=== PATIENT | male | born 1945 | race Caucasian/White ===

== ENCOUNTER 2022-04-16 09:45 | Emergency (ER) | payer MEDICARE, OTHER, SELFPAY ==
[2022-04-16 10:04] VITALS: BP 152/87; PULSE 65; RESP 18; TEMP 36.4; O2SAT 97; BMI 22.0
--- NOTE | 2022-04-16 10:58 | ED.GENADULT ---
HPI - General Adult General Chief complaint: Unspecified Complaint, Adult Stated complaint: Face,eyes, neck swollen for 2 weeks Time Seen by Provider: 04/16/22 10:32 Source: patient Mode of arrival: ambulatory Limitations: no limitations History of Present Illness HPI narrative: 76-year-old male coming in today complaining of a rash on his face and neck that is present for about 2 weeks. The rash is very itchy. The skin has been cracking and the whole area feels like it is sunburned. He uses a Benadryl spray which does not really help him too much. He denies difficulty breathing or swallowing. Rash is located across the cheeks nose chin and the neck. Patient does state that he spends a lot of time outside. He states that 1 year ago the same thing happened with the rash went away on its own in a few days. The rash does not encompasses forehead, he does wear a hat that when he is outside. And the rash does not go below his neckline. He denies any difficulty breathing or swallowing. He does have history of psoriasis but he states that his psoriasis has been fairly well controlled he has had no significant outbreaks and is not on any medications. He states that he has a patch on his hip that is small and does not bother him. He is on amlodipine and simvastatin which he has been off for several years for hypertension and hyperlipidemia and denies any new medications. Related Data Home Medications Medication Instructions Recorded Confirmed amlodipine 04/16/22 simvastatin 04/16/22 Previous Rx's Medication Instructions Recorded prednisone 20 mg tablet 20 mg PO DAILY 5 days #5 tabs 04/16/22 triamcinolone acetonide 0.5 % 1 applic topical DAILY PRN 5 days 04/16/22 topical cream #15 grams Allergies Allergy/AdvReac Type Severity Reaction Status Date / Time No Known Drug Allergies Allergy Verified 04/16/22 10:09 Review of Systems Status of ROS: Reports: 10 or more systems reviewed and unremarkable except as noted in History and below Exam Narrative: Exam Narrative: Well-nourished well-developed patient in no acute distress. Alert and oriented. Answers questions appropriately. Mood and affect are appropriate. Thoughts are goal oriented and rational. No tangential or magical thinking noted. Patient speaks in full sentences without needing to catch his breath. Voice sounds normal. HEENT: Normocephalic atraumatic. Pupils are equally round reactive to light. Extraocular muscles are intact. Conjunctivae are moist without any icterus noted. Moist mucous membranes. Posterior pharynx is normal. Neck is soft without any lymphadenopathy or thyromegaly. No masses are appreciated. Patient's skin across the cheeks nose and chin is bright pink with the rash extending down the front of the neck. The skin is very dry and cracked in a couple of places, several places are scaly. It is not hot to touch. It is not indurated. There is no significant swelling noted. The rash does not extend circumferentially around the neck. Const: Vital Signs, click to edit/add: Vital Signs - 24 hr 04/16/22 10:04 Temperature 97.6 F Pulse Rate [Pulse Oximeter] 65 Respiratory Rate 18 Blood Pressure [Ri ght Upper Arm] 152/87 H Pulse Oximetry 97 Oxygen Delivery Me thod Room Air Course Vital Signs Vital signs: Initial Vital Signs Temperature 97.6 F 04/16/22 10:04 Temperature Source Temporal Artery Scan 04/16/22 10:04 Pulse Rate 65 04/16/22 10:04 Respiratory Rate 18 04/16/22 10:04 Blood Pressure 152/87 H 04/16/22 10:04 Blood Pressure Mean 108 04/16/22 10:04 Blood Pressure Position Supine 04/16/22 10:04 Pulse Oximetry 97 04/16/22 10:04 Oxygen Delivery Method 04/16/22 10:04 Vital Signs Temperature 97.6 F 04/16/22 10:04 Pulse Rate 65 04/16/22 10:04 Respiratory Rate 18 04/16/22 10:04 Blood Pressure 152/87 H 04/16/22 10:04 Pulse Oximetry 97 04/16/22 10:04 Oxygen Delivery Method 04/16/22 10:04 Temperature 97.6 F 04/16/22 10:04 Pulse Rate 65 04/16/22 10:04 Respiratory Rate 18 04/16/22 10:04 Blood Pressure 152/87 H 04/16/22 10:04 Pulse Oximetry 97 04/16/22 10:04 Oxygen Delivery Method 04/16/22 10:04 Medical Decision Making [facility] Narrative Medical decision making narrative: 76-year-old male with a rash on his face and anterior neck. Rash is eczematous in appearance, appears to only be on skin that has been exposed to the cold. I do not appreciate any evidence of infection today. We will treat him with oral prednisone as well as triamcinolone cream. I would like him follow up with primary care provider next week. Return to the ER if symptoms worsen. Patient was agreeable had no other questions. Discharge Plan Discharge Clinical Impression: Rash Patient Disposition: Home, Self-Care Condition: Stable Additional Instructions: Take all medications as prescribed. Follow-up with primary care provider in 1 week. Prescriptions: New prednisone 20 mg tablet 20 mg PO DAILY 5 Days Qty: 5 0RF triamcinolone acetonide 0.5 % cream 1 applic topical DAILY PRN5 Days Qty: 15 0RF No Action amlodipine simvastatin Follow Up/Referrals: Faizan An MD [Primary Care Provider] - Stand Alone Forms: [facility] Info Instructions
== END 2022-04-16 11:41 | disposition home or self-care (01) ==
LOC: ED 11:15
PROVIDERS: Emergency Provider Family Medicine; PCP Family Medicine
DX: R21 Rash and other nonspecific skin eruption (principal)
CPT/HCPCS: 99283; 99284

== ENCOUNTER 2022-12-27 10:05 | Emergency (ER) | payer MEDICARE, OTHER, SELFPAY ==
[2022-12-27] VITALS (19 sets, daily range): BP systolic 146–162; BP diastolic 78–101; PULSE 60–72; RESP 18; TEMP 36.3; O2SAT 95–97; BMI 22.7
--- NOTE | 2022-12-27 | CRLHL7_ITS ---
For Patients: As a result of the Century Cures Act, medical imaging exams and procedure reports are released immediately into your electronic medical record. You may view this report before your referring provider. If you have questions, please contact your health care provider. CT ANGIOGRAM HEAD DATE: 12/27/2022 CLINICAL HISTORY: Patient with headache. TECHNIQUE: Standard helical CT image acquisition through the intracranial circulation following intravenous administration of contrast material with bolus tracking. 2D and 3D MIP images for post-processing were performed and interpreted on an independent workstation and 3D images were permanently archived. COMPARISON: CT same day. FINDINGS: There is no proximal intracranial large vessel occlusion. There is no intracranial aneurysm. The right internal carotid artery is normal. The right middle cerebral artery and its branches are normal. The right anterior cerebral artery and its branches are normal. The left internal carotid artery is normal. The left middle cerebral artery and its branches are normal. The left anterior cerebral artery and its branches are normal. The anterior communicating artery is well visualized and appears normal. The right vertebral artery and PICA are normal. The left vertebral artery and PICA are normal. The left vertebral artery is dominant. The basilar artery is patent and appears normal. The right posterior cerebral artery is normal. The left posterior cerebral artery is normal. The visualized venous structures are patent. IMPRESSION: Patent proximal intracranial vasculature without intracranial aneurysms. Please note that all CT scans at this facility use dose modulation, iterative reconstruction, and/or weight-based dosing when appropriate to reduce radiation dose to as low as reasonably achievable. Dictated by: Deven Shaffer MD @ 12/27/2022 13:00:19 (Electronically Signed)
--- NOTE | 2022-12-27 10:47 | ED_ITS ---
HPI - Neck Pain/Injury General Date Seen: 12/27/22 Chief Complaint: Neck Injury/Pain Stated Complaint: Neck/head pain Time Seen by Provider: 12/27/22 10:09 Source: patient Mode of arrival: ambulatory Limitations: no limitations History of Present Illness HPI Narrative: Patient is a 77-year-old gentleman who presents here for evaluation of neck pain. He has had this now for the past 48 hours, woke up with it in the morning. Did not come on acutely with exertion, or exercise. He does remember pulling some weeds in his garden, and some roots. But does not think this may be due to this. As he chops wood and he has no problems. He really has no issues with numbness tingling or weakness, he has some mild feeling of dizziness in all feeling on balance also with this. He is taking Tylenol 1 g t.i.d., with not a lot of improvement. No previous history of neck issues, denies chiropractic manipulation, is on no anticoagulants. MD complaint: neck pain Onset (ago): day(s) Place: home Radiation: occiput Severity: moderate Quality: stabbing Duration: intermittent Relieving factors: immobilization and medication OTC/prescribed Exacerbating factors: movement of neck and swallowing Context: unknown Associated symptoms: vertigo Treatments prior to arrival: acetaminophen Related Data Home Medications Medication Instructions Recorded Confirmed amlodipine 04/16/22 simvastatin 04/16/22 Previous Rx's Medication Instructions Recorded prednisone 20 mg tablet 20 mg PO DAILY 5 days #5 tabs 04/16/22 triamcinolone acetonide 0.5 % 1 applic topical DAILY PRN 5 days 04/16/22 topical cream #15 grams prednisone 20 mg tablet 20 mg PO BID #10 tabs 12/27/22 Allergies Allergy/AdvReac Type Severity Reaction Status Date / Time No Known Drug Allergies Allergy Verified 12/27/22 12:41 Review of Systems Status of ROS: Reports: 10 or more systems reviewed and unremarkable except as noted in History and below PFSH PFSH Social History Smoking Status: Unknown if ever smoked Non-prescribed substance use: denies use service: Yes Exam Narrative: Exam Narrative: Patient is seen in room 4 he is speaking to me normally nontoxic would really does not have a lot a lateral her cervical motion at all of his neck. His pupils are unequal with the right 1 being 3 mm left lung being 5, he does however tell me that he has had previous eye surgery on the left 1, for cataract, and then repeat surgery for I displaced lens. On looking his license, the left 1 does look a little larger than the right. He does have 2 beats of nystagmus bilaterally horizontal, TMs are normal bilaterally, but upstrokes are equal his mouth opening is normal, there is no evidence of any abnormality of his teeth of the floor of his mouth or his fair next. Range of motion of his neck is from 6-13 cm, and no lateral flexion in no rotation really is noted. No palpable tenderness noted over his neck on palpation or percussion. No masses no cervical lymphadenopathy in his carotid upstrokes are equal bilaterally. Chest is clear heart sounds are normal no clicks murmurs or gallops, he feels to be in regular heart rhythm, bowl turner strengths are normal is upper extremities both finger abduction, 1st finger thumb opposition, biceps triceps power and shoulder abduction are normal, muscle bulk equal bilaterally with normal pulses he is abl e to walk normally in the room he does not appear off balance to me. Const: Vital Signs, click to edit/add: Vital Signs - 24 hr 12/27/22 10:19 12/27/22 11:39 12/27/22 11:45 Temperature 97.4 F L Pulse Rate 63 63 Pulse Rate [Right Pulse Oximeter] 70 Respiratory Rate 18 Blood Pressure Blood Pressure [Ri ght Upper Arm] 146/78 H Pulse Oximetry 96 97 97 Oxygen Delivery Me thod Room Air 12/27/22 12:00 12/27/22 12:01 12/27/22 12:02 Temperature Pulse Rate 63 60 61 Pulse Rate [Right Pulse Oximeter] Respiratory Rate Blood Pressure 149/84 H Blood Pressure [Ri ght Upper Arm] Pulse Oximetry 96 96 96 Oxygen Delivery Me thod 12/27/22 12:15 12/27/22 12:40 12/27/22 12:45 Temperature Pulse Rate 66 68 63 Pulse Rate [Right Pulse Oximeter] Respiratory Rate Blood Pressure Blood Pressure [Ri ght Upper Arm] Pulse Oximetry 97 96 97 Oxygen Delivery Nj thod 12/27/22 13:00 12/27/22 13:01 12/27/22 13:21 Temperature Pulse Rate 68 66 67 Pulse Rate [Right Pulse Oximeter] Respiratory Rate Blood Pressure 162/85 H Blood Pressure [Ri ght Upper Arm] Pulse Oximetry 97 96 95 Oxygen Delivery Me thod Documenting provider has reviewed patient's vital signs: yes Course Course Hospital Course: Reviewed with patient is radiology tests both the CT and CTAs, look okay. There is 60% disease of his internal carotid, which should make him a candidate for aspirin 81 mg day. But [facility]. There is severe disease of his cervical spine, osteoarthritis and degenerative disc disease is likely is the cause of his inability to move his neck. He has been on prednisone before, and done well with this we will place him on prednisone 20 mg twice daily. I will give him a dose of Solu-Medrol here to get him going. [facility] will [facility]. He can take acetaminophen 1 g also. Vital Signs Vital signs: Initial Vital Signs Temperature 97.4 F L 12/27/22 10:19 Temperature Source Temporal Artery Scan 12/27/22 10:19 Pulse Rate 70 12/27/22 10:19 Respiratory Rate 18 12/27/22 10:19 Blood Pressure 146/78 H 12/27/22 10:19 Blood Pressure Mean 100 12/27/22 10:19 Blood Pressure Position Sitting 12/27/22 10:19 Pulse Oximetry 96 12/27/22 10:19 Oxygen Delivery Method Room Air 12/27/22 10:19 Vital Signs Temperature 97.4 F L 12/27/22 10:19 Pulse Rate 70 12/27/22 10:19 Respiratory Rate 18 12/27/22 10:19 Blood Pressure 146/78 H 12/27/22 10:19 Pulse Oximetry 96 12/27/22 10:19 Oxygen Delivery Method Room Air 12/27/22 10:19 Temperature 97.4 F L 12/27/22 10:19 Pulse Rate 67 12/27/22 13:21 Respiratory Rate 18 12/27/22 10:19 Blood Pressure 162/85 H 12/27/22 13:01 Pulse Oximetry 95 12/27/22 13:21 Oxygen Delivery Method Room Air 12/27/22 10:19 MDM - Neck Pain/Injury MDM Narrative Medical decision making narrative: We will go ahead and get some labs, will need some imaging, I am thinking likely CTA of head and neck, along with CT of the head. Differential Diagnosis Differential diagnosis: Likely disc disorder of cervical region, closed subluxation of cervical spine, fracture of cervical spine without lesion of spinal cord, cervical radiculopathy, vertebral artery dissection, torticollis, cervical spondylosis and strain of neck muscle Medical Records Attestation: I reviewed the patient's medical records. Lab Data Attestation: I reviewed the patient's lab results. Labs: Lab Results 12/27/22 Range/Units 11:21 WBC 8.18 (4.50-11.00) K/uL RBC 5.10 (4.30-5.90) m/uL Hgb 16.0 (13.5-17.5) gm/dL Hct 47.0 (37.0-53.0) % MCV 92 (80-100) fL MCH 31 (26-34) pg MCHC 34 (32-36) gm/dL RDW Coeff of Monica 12.9 (11.5-15.5) % Plt Count 402 (140-440) K/uL Neut % (Auto) 63.3 (42.0-72.0) % Lymph % (Auto) 22.7 (20-44) % [place] % (Auto) 11.2 H (0.0-11.0) % Eos % (Auto) 2.3 (0.0-7.0) % Baso % (Auto) 0.4 (0.0-3.0) % Neut # (Auto) 5.17 (1.7-7.0) K/uL Lymph # (Auto) 1.86 (0.90-2.90) K/uL [place] # (Auto) 0.90 (0.00-0.90) K/UL Eos # (Auto) 0.19 (0.00-0.50) K/uL Baso # (Auto) 0.03 (0.00-0.30) K/uL Abs Immat Gran (auto) 0.01 (0.00-0.30) K/uL Imm/Tot Granulo (auto) 0.1 % INR 0.96 (0.91-1.10) APTT 28 (23-33) Seconds Sodium 140 (135-149) mmol/L Potassium 3.6 (3.6-5.1) mmol/L Chloride 104 (96-114) mmol/L Carbon Dioxide 26 (20-32) mmol/L BUN 10 (7-30) mg/dL Creatinine 0.6 (0.5-1.5) mg/dL Estimated Creat Clear 57.55 Estimated GFR 99 ml/min Glucose 95 (60-115) mg/dL Calcium 9.6 (8.4-10.6) mg/dL C-Reactive Protein 1.6 H (0.5-1.0) mg/dL Imaging Data CT scan - head: Attestation: I have reviewed the pertinent imaging results. My impression: Severe disease of cervical spine. No acute finding Radiologist's impression: Patient: SHANKAR GAMINO Facility:?[facility] Patient ID:?[id number] Site Patient ID:?[id number]. Site :?1945 Study:?CT Head Angio w/ 95cc [id number] 12:45:08 PM Ordering Physician:Constance Brunner Final Report: CT ANGIOGRAM HEAD DATE: 12/27/2022 CLINICAL HISTORY: Patient with headache. TECHNIQUE: Standard helical CT image acquisition through the intracranial circulation following intravenous administration of contrast material with bolus tracking. 2D and 3D MIP images for post-processing were performed and interpreted on an independent workstation and 3D images were permanently archived. COMPARISON: CT same day. FINDINGS: There is no proximal intracranial large vessel occlusion. There is no intracranial aneurysm. The right internal carotid artery is normal. The right middle cerebral artery and its branches are normal. The right anterior cerebral artery and its branches are normal. The left internal carotid artery is normal. The left middle cerebral artery and its branches are normal. The left anterior cerebral artery and its branches are normal. The anterior communicating artery is well visualized and appears normal. The right vertebral artery and PICA are normal. The left vertebral artery and PICA are normal. The left vertebral artery is dominant. The basilar artery is patent and appears normal. The right posterior cerebral artery is normal. The left posterior cerebral artery is normal. The visualized venous structures are patent. IMPRESSION: Patent proximal intracranial vasculature without intracranial aneurysms. Please note that all CT scans at this facility use dose modulation, iterative reconstruction, and/or weight-based dosing when appropriate to reduce radiation dose to as low as reasonably achievable. Dictated by: Deven Shaffer MD @ 12/27/2022 13:00:19 (Electronic Signature) atient: SHANKAR GAMINO Facility:?[facility] Patient ID:?[id number] Site Patient ID:?[id number]. Site :?1945 Study:?CT Neck Angio Angio w/ 95cc [id number] 12:45:06 PM Ordering Physician:Constance Brunner Final Report: CT ANGIOGRAM NECK DATE: 12/27/2022 CLINICAL HISTORY: Patient with neck pain. TECHNIQUE: Standard helical CT image acquisition of the neck up to the skull base after bolus intravenous contrast enhancement. 2D and 3D MIP images for post-processing were performed and interpreted on an independent workstation and 3D images were permanently archived. COMPARISON: CT same day. FINDINGS: The origins of the great vessels from the aortic arch are patent. The origin of the right vertebral artery is patent. The origin of the left vertebral artery demonstrates mild narrowing. The common carotid arteries are patent. There is no stenosis at the origin of the right internal carotid artery by NASCET criteria. There is a moderate (60%) stenosis at the origin of the left internal carotid artery by NASCET criteria caused by non-calcified plaque with a 1.5mm residual lumen. The rest of the cervical segments of the internal carotid arteries are patent up to the skull base. The left vertebral artery is dominant. The cervical segments of the vertebral arteries are patent up to the skull base. The visualized lung apices are unremarkable. The thyroid gland is unremarkable. The soft tissues of the neck are unremarkable. There are degenerative changes in the cervical spine. IMPRESSION: 1. 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 2. Mild left vertebral artery origin stenosis. Please note that all CT scans at this facility use dose modulation, iterative reconstruction, and/or weight-based dosing when appropriate to reduce radiation dose to as low as reasonably achievable. Dictated by: Deven Shaffer MD @ 12/27/2022 12:56:49 (Electronic Signature) Patient: SHANKAR SCHWABTER Facility:?[facility] Patient ID:?[id number] Site Patient ID:?[id number]. Site :?1945 Study:?CT Spine Cervical w/o-12/27/2022 12:40:28 PM Ordering Physician:?Maren Brunner Final Report: Indication: Headache. Neck pain. Technique: CT of the cervical spine performed without IV contrast. Comparison: None available. Findings: The cervical vertebral body heights appear maintained without evidence of fracture. Moderate to severe multilevel disc height loss. Reversal of the lower cervical lordosis. Mild to moderate dextroconvex curvature. Moderate multilevel spondylosis, with varying degrees spinal canal and neural foraminal narrowing, most pronounced at the C5-6 and C6-7 levels. No prevertebral soft tissue swelling. The visualized lung apices appear clear. Impression: 1. No acute fracture or traumatic subluxation. 2. Moderate multilevel spondylosis. Please note that all CT scans at this facility use dose modulation, iterative reconstruction, and/or weight-based dosing when appropriate to reduce radiation dose to as low as reasonably achievable. Dictated by Dane Quijano MD @ 12/27/2022 1:54:56 PM (Electronic Signature) Patient: SHANKAR GAMINO Facility:?[facility] Patient ID:?[id number] Site Patient ID:?[id number]. Site :?1945 Study:?CT Head W/O-12/27/2022 12:40:05 PM Ordering Physician:Constance Brunner Final Report: CT HEAD DATE: 12/27/2022 CLINICAL HISTORY: Patient with headache. TECHNIQUE: Standard CT scanning of the head was performed. COMPARISON: None. FINDINGS: There is no intracranial hemorrhage. There is no territorial infarction. There are mild microangiopathic changes. There is diffuse parenchymal volume loss. There is no mass effect or midline shift. The calvarium is unremarkable. The orbits are unremarkable. The paranasal sinuses are unremarkable. The mastoid air cells are unremarkable. The soft tissues demonstrate non-specific right parietal subgaleal soft tissue thickening. IMPRESSION: 1. No intracranial hemorrhage or territorial infarction. 2. Mild microangiopathic changes and diffuse parenchymal volume loss. Please note that all CT scans at this facility use dose modulation, iterative reconstruction, and/or weight-based dosing when appropriate to reduce radiation dose to as low as reasonably achievable. Dictated by: Deven Shaffer MD @ 12/27/2022 12:52:05 (Electronic Signature) ECG Data Attestation: I personally reviewed and interpreted this ECG as follows: ECG interpretation date: 12/27/22 ECG interpretation time: 12:28 Interpretation: EKG shows normal sinus rhythm, normal EKG with no acute ST wave changes. Discharge Plan Discharge Clinical Impression: Disc disorder of cervical region, Cervical spondylosis, Carotid artery disease Patient Disposition: Home, Self-Care Condition: Stable Instructions: Osteoarthritis (DC), Neck Pain (ED), Chronic Neck Pain (DC) Additional Instructions: Home [facility]. Use of the prednisone as directed, use Tylenol 1 g by mouth 3 times a day. Ice is also helpful, no chiropractic manipulation. Most of the time for 60% disease stenosis carotid we like you to take aspirin 81 mg a day, I would like you [facility]. Return as needed. Activity Level: Light activity Prescriptions: New prednisone 20 mg tablet 20 mg PO BID Qty: 10 0RF No Action amlodipine simvastatin prednisone 20 mg tablet 20 mg PO DAILY 5 Days Qty: 5 0RF triamcinolone acetonide 0.5 % cream 1 applic topical DAILY PRN5 Days Qty: 15 0RF Follow Up/Referrals: Faizan An MD [Primary Care Provider] - Stand Alone Forms: [facility] Info Instructions
[2022-12-27] MEDS: 0.9 % SODIUM CHLORIDE 1000 ml 1,000 ML IV (11:10)
[2022-12-27 11:34] LABS: Basophils Absolute Auto 0.03 K/uL (0.00-0.30); Basophils Percent Auto 0.4 % (0.0-3.0); Eosinophils Absolute Auto 0.19 K/uL (0.00-0.50); Eosinophils Percent Auto 2.3 % (0.0-7.0); Immature Granulocytes Abs Auto 0.01 K/uL (0.00-0.30); Immature Granulocytes Pct Auto 0.1 %; Lymphocytes Absolute Auto 1.86 K/uL (0.90-2.90); Lymphocytes Percent Auto 22.7 % (20-44); Mean Corpuscular HGB Conc 34 gm/dL (32-36); Mean Corpuscular Hemoglobin 31 pg (26-34); Mean Corpuscular Volume 92 fL (80-100); Monocytes Percent Auto 11.2 % (0.0-11.0); Neutrophils Absolute Auto 5.17 K/uL (1.7-7.0); Neutrophils Percent Auto 63.3 % (42.0-72.0); Platelet Count* 402 K/uL (140-440); RDW Coefficient of Variation % 12.9 % (11.5-15.5); White Blood Count* 8.18 K/uL (4.50-11.00)
[2022-12-27 11:38] LABS: Slide Review Reflex No
[2022-12-27 11:52] LABS: Chloride* 104 mmol/L (96-114); Potassium* 3.6 mmol/L (3.6-5.1); Sodium* 140 mmol/L (135-149)
[2022-12-27 11:55] LABS: Blood Urea Nitrogen* 10 mg/dL (7-30); Carbon Dioxide* 26 mmol/L (20-32); Creatinine* 0.6 mg/dL (0.5-1.5); Est. Creatinine Clearance* 57.55; Estimated Glomerular Filt Rate 99 ml/min; INR 0.96 (0.91-1.10); Partial Thromboplastin Time* 28 Seconds (23-33); Prothrombin Time 13.3 Seconds
[2022-12-27 11:56] LABS: Calcium* 9.6 mg/dL (8.4-10.6); Glucose* 95 mg/dL (60-115)
[2022-12-27 11:58] LABS: C Reactive Protein* 1.6 mg/dL (0.5-1.0)
--- NOTE | 2022-12-27 12:07 | CRLHL7_ITS ---
For Patients: As a result of the Century Cures Act, medical imaging exams and procedure reports are released immediately into your electronic medical record. You may view this report before your referring provider. If you have questions, please contact your health care provider. CT HEAD DATE: 12/27/2022 CLINICAL HISTORY: Patient with headache. TECHNIQUE: Standard CT scanning of the head was performed. COMPARISON: None. FINDINGS: There is no intracranial hemorrhage. There is no territorial infarction. There are mild microangiopathic changes. There is diffuse parenchymal volume loss. There is no mass effect or midline shift. The calvarium is unremarkable. The orbits are unremarkable. The paranasal sinuses are unremarkable. The mastoid air cells are unremarkable. The soft tissues demonstrate non-specific right parietal subgaleal soft tissue thickening. IMPRESSION: 1. No intracranial hemorrhage or territorial infarction. 2. Mild microangiopathic changes and diffuse parenchymal volume loss. Please note that all CT scans at this facility use dose modulation, iterative reconstruction, and/or weight-based dosing when appropriate to reduce radiation dose to as low as reasonably achievable. Dictated by: Deven Shaffer MD @ 12/27/2022 12:52:05 (Electronically Signed)
--- NOTE | 2022-12-27 12:07 | CRLHL7_ITS ---
For Patients: As a result of the Century Cures Act, medical imaging exams and procedure reports are released immediately into your electronic medical record. You may view this report before your referring provider. If you have questions, please contact your health care provider. CT ANGIOGRAM NECK DATE: 12/27/2022 CLINICAL HISTORY: Patient with neck pain. TECHNIQUE: Standard helical CT image acquisition of the neck up to the skull base after bolus intravenous contrast enhancement. 2D and 3D MIP images for post-processing were performed and interpreted on an independent workstation and 3D images were permanently archived. COMPARISON: CT same day. FINDINGS: The origins of the great vessels from the aortic arch are patent. The origin of the right vertebral artery is patent. The origin of the left vertebral artery demonstrates mild narrowing. The common carotid arteries are patent. There is no stenosis at the origin of the right internal carotid artery by NASCET criteria. There is a moderate (60%) stenosis at the origin of the left internal carotid artery by NASCET criteria caused by non-calcified plaque with a 1.5mm residual lumen. The rest of the cervical segments of the internal carotid arteries are patent up to the skull base. The left vertebral artery is dominant. The cervical segments of the vertebral arteries are patent up to the skull base. The visualized lung apices are unremarkable. The thyroid gland is unremarkable. The soft tissues of the neck are unremarkable. There are degenerative changes in the cervical spine. IMPRESSION: 1. 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 2. Mild left vertebral artery origin stenosis. Please note that all CT scans at this facility use dose modulation, iterative reconstruction, and/or weight-based dosing when appropriate to reduce radiation dose to as low as reasonably achievable. Dictated by: Deven Shaffer MD @ 12/27/2022 12:56:49 (Electronically Signed)
--- NOTE | 2022-12-27 12:09 | CRLHL7_ITS ---
For Patients: As a result of the Century Cures Act, medical imaging exams and procedure reports are released immediately into your electronic medical record. You may view this report before your referring provider. If you have questions, please contact your health care provider. Indication: Headache. Neck pain. Technique: CT of the cervical spine performed without IV contrast. Comparison: None available. Findings: The cervical vertebral body heights appear maintained without evidence of fracture. Moderate to severe multilevel disc height loss. Reversal of the lower cervical lordosis. Mild to moderate dextroconvex curvature. Moderate multilevel spondylosis, with varying degrees spinal canal and neural foraminal narrowing, most pronounced at the C5-6 and C6-7 levels. No prevertebral soft tissue swelling. The visualized lung apices appear clear. Impression: 1. No acute fracture or traumatic subluxation. 2. Moderate multilevel spondylosis. Please note that all CT scans at this facility use dose modulation, iterative reconstruction, and/or weight-based dosing when appropriate to reduce radiation dose to as low as reasonably achievable. Dictated by Dane Quijano MD @ 12/27/2022 1:54:56 PM (Electronically Signed)
[2022-12-27] MEDS: METHYLPREDNISOLONE SOD SUCC 62.5 MG/ML (125) 125 MG IVP (14:27)
== END 2022-12-27 14:46 | disposition home or self-care (01) ==
PROVIDERS: Emergency Provider Family Medicine; PCP Family Medicine
DX: M50.10 Cervical disc disorder with radiculopathy, unspecified cervical region (principal); M47.812 Spondylosis without myelopathy or radiculopathy, cervical region; I25.10 Atherosclerotic heart disease of native coronary artery without angina pectoris
CPT/HCPCS: 36415; 70450; 70496; 70498; 72125; 80048; 85025; 85610; 85730; 86140; 93005; 96374; 99284; 99285; J2930; J7030; Q9967

== ENCOUNTER 2024-05-22 08:36 | Emergency (ER) | payer MEDICARE, OTHER, SELFPAY ==
--- OUTSIDE RECORDS SUMMARY | 2024-05-22 08:38 | XMS_ITS | Encounter Summary ---
Author Name [facility] [facility] [place] Address [address] [place] [address] Care Team Providers Care Pharmacy Assistant Name Role Phone ODELL HYMAN Primary Care Provider Unavailabl e Insurance Providers: All historical and current Section Date Range: From patient's date of to the date document was created. This section includes the names of all active insurance providers for the patient. Insurance Provider Type of Coverage Plan Name Start of Policy Coverage End of Policy Coverage Group Number Member ID Insurance Provider's Telephone Number Policy Cifuentes's Name Patient's Relationship to Policy Cifuentes MEDICARE (WNR) MEDICARE (M) PART A Apr 14, 2010 PART A [id number] [phone] Sissy GAMINO PATIENT MEDICARE (WNR) MEDICARE (M) PART B Apr 14, 2010 PART B [id number] [phone] Sissy GAMINO PATIENT Selected Encounter This section includes the information on record at [place] for the Encounter. Date/Time Encounter Type Encounter Description Reason Provider Source Nov 09, 2023 08:20 AM OFFICE O/P EST MOD 30 MIN OPHTHALMOLOGY ICD-10-CM H40.003 Preglaucoma, unspecified, bilateral JOSELO ORTIZ [facility] Encounter Template Text not used by [place] Assessments - Encounter Diagnoses This section includes the primary and secondary diagnoses documented for the Encounter. Date/Time Primary/Secondary Diagnosis Diagnosis Name Provider Source Nov 09, 2023 09:32 AM PRIMARY Preglaucoma, unspecified, bilateral JOSELO ORTIZ [facility] Nov 09, 2023 09:32 AM SECONDARY Myopia, bilateral JOSELO ORTIZ [facility] Nov 09, 2023 09:32 AM SECONDARY Other retinal detachments JOSELO ORTIZ [facility] Nov 09, 2023 09:32 AM SECONDARY Unspecified astigmatism, bilateral JOSELO ORTIZ [facility] Plan of Treatment: Future Appointments (+ 6 months) and Future Tests (+/- 45 days) The Plan of Treatment section includes [facility] care [facility] for the patient [facility] [place] [facility] This section includes future appointments and future orders which are active, pending or scheduled. Future Appointments This section includes appointments that were scheduled to occur 6 months from the date of the Encounter, up to a maximum of 20 appointments. The data comes from all [place] treatment facilities. Appointment Date/Time Appointment Type Appointme nt Facility Name Dec 19, 2023 08:00 AM [place] [facility] Dec 19, 2023 09:00 [facility] Feb 07, 2024 11:00 AM [facility] - [place]ONE [place] [facility] Mar 26, 2024 08:00 AM AM[place]ORY - [place]ONE [place] [facility] Mar 26, 2024 09:15 AM AM[place]ORY - [place]ONE [place] [facility] Mar 26, 2024 10:00 AM [facility] Apr 22, 2024 10:45 AM [facility] [place] [facility] [facility] Apr 22, 2024 11:00 AM AM[place]UL[place]ORY - [place]ONE [place] [facility] May 05, 2024 07:00 AM AM[place]ORY - [place]ONE [place] [facility] Social History: Smoking Status (Most current) and Tobacco Use (All prior to encounter date) This section includes the most current, and the historical, smoking and tobacco- related health factors from the [place] facility where the Encounter took place. Current Smoking Status This section includes the most current smoking, or tobacco-related health factor, from the [place] facility where the Encounter took place. Date/Time Current Smoking Status Comment Shaheed jauregui Nov 08, 2022 08:00 AM [place]-TOBACCO NEVER USED [facility] Tobacco Use History This section includes a history of the smoking, or tobacco-related health factors, that were collected on or before the date of the Encounter. The data comes from the [place] facility where the Encounter took place. Date/Time Smoking Status/Tobacco Use Comment F saul Oct 19, 2021 10:00 AM VA-TOBACCO NEVER USED [facility] October 01, 2018 11:22 AM VA-TOBACCO NEVER USED [facility] Jul 31, 2017 12:37 PM LIFETIME NON-TOBACCO USER [facility] Aug 10, 2016 07:51 AM LIFETIME NON-TOBACCO USER [facility] Jul 21, 2015 07:47 AM LIFETIME NON-TOBACCO USER [facility] October 07, 2014 11:04 AM LIFETIME NON-TOBACCO USER [facility] October 04, 2013 09:48 AM LIFETIME NON-TOBACCO USER [facility] Advance Directives: All historical and current Section Date Range: From patient's date of to the date document was created. This section includes ALL of a patient's completed or amended [place] Advance and Rescinded Directives. The entries below indicate that a directive exists for the patient, but an actual copy is not included with this document. The data comes from all [place] facilities. Date Advance Directives Provider Source Mar 24, 2010 CLINICAL WARNING [facility] Dec 07, 2004 ADV[address] DIRECT[address]ISA [address] Encounter Notes: All associated encounter notes This section contains the clinical notes associated to the Encounter. Date/Time Encounter Note(s) Provider Source Nov 09, 2023 09:11 AM OPHTHALMOLOGY ATTE SMITHA NOTE: LOCAL TITLE: OPHTHALMOLOGY CLINIC NOTE STANDARD TITLE: OPHTHALMOLOGY ATTENDING NOTE DATE OF NOTE: NOV 09, 2023@09:11 ENTRY DATE: NOV 09, 2023@09:11:18 AUTHOR: DALI ORTIZ EXP COSIGNER: URGENCY: STATUS: COMPLETED HPI: --Here for 7 mon f/u for VTD/MR today. *LTG f/u History of Present Illness: Patient states no vision changes. c/o OD feling more irritated--he's rubbing it more often. Denies any new floaters/flashes OU. No pain/discomfort OU. Drops Using: Timolol QAM OU pt states that he used to get 3 bottles per refill, but now he's only getting 1 bottle at a time--pt wondering did the rx order change? Eye History: Low tension glaucoma, ou Pseudophakia, OU Hx RD surgery, OU S/P dislocated IOL OS repair Full Exam Allergies: Patient has answered NKA No new Allergies. Past Medical History: Hypertension High cholesterol Social History: Alcohol use - yes Tobacco use - no Last refraction: 03/22/23 Vision: OD:CC(with glasses) OD: 20/40-2/+3 Pinhole: NI Vision: OS:CC(with glasses) 0S: 20/100+1 Pinhole: 2070-1 Current glasses: -1.00 +1.25 X168 -1.50 +0.50 X150 +2.50 add Refraction TODAY: Manifest: YES Automated: NO OD: -1.00 +1.25 x160 20/30-3 fluctuating OS: -1.50 +0.75 x135 20/80 c time Add: +2.75 Near vision: OU 20/20-2 c time Comment: *pt wants rx for sv distance glasses only today--prefers NOT` to get BF Confrontational Rodriguez: Full to finger counting: Right: Yes Left: Yes Pupils: Right: Round Left: Round Size: Right: 3 Left: 4.5 React to light: Right: Yes Left: no--fixed Afferent pupil defect: Right:No Grade: Left: No Grade: Intra-ocular pressure (IOP): OD: 13 OS: 14 Applanation Dilation: mydriacyl 1% and neosynephrine OU @ 8:32 I have reviewed and agree with the technicians examination General Eye Exam (bilateral unless noted otherwise): The patient is alert and oriented x 3 External: Adnexa/Orbit- wnl OU Eyelids/Lashes- dermatochalasis SLE: Conjunctiva- clear Sclera- white and quiet Cornea- clear AC- Deep and clear Iris- wnl and round Lens- PC IOL OD; AC IOL OS Vitreous- clear 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 flat, saucerized ; OS 0.4 Vessels- normal caliber, no heme Macula- flat few drusen Periphery-encircling band and cryo/laser OU Impression/Plan: 1. Glaucoma suspect ou - Peak TA 21/2 - pachy: od 552/563 - oct rnfl 08/04 with significant ppa artifact, not repeating in the future. - HVF in past reliable ou with enlarged blind spot ou and stable Sup nasal defect ? glaucoma vs CR scarring - I doubt glaucoma but timolol has reduced pressure and well tolerated - Cont. Rg OU q AM FU 1 y 2 Pseudophakia, OU AC IOL OS in good position - Doing well, monitor 3. Hx RD surgery, OU - Doing well, monitor 4 S/P dislocated IOL OS repair - stable, monitor 5. Myopic astig (previous high myope) New rx today for distance only. FU 1 y with HVF VTD /es/ DALI ORTIZ MD OPHTHALMOLOGY STAFF SURGEON Signed: 11/09/2023 09:33 DALI ORTIZ [facility] Nov 09, 2023 08:34 AM OPHTHALMOLOGY TECH NICIAN NOTE: LOCAL TITLE: APPLICATION SYSTEMS ENGINEER NOTE STANDARD TITLE: APPLICATION SYSTEMS ENGINEER NOTE DATE OF NOTE: NOV 09, 2023@08:34 ENTRY DATE: NOV 09, 2023@08:34:31 AUTHOR: ESTRELLA GARIBAY COSIGNER: URGENCY: STATUS: COMPLETED Suicide Screen: C-SSRS Screening Anderson-Suicide Severity Rating Scale (C-SSRS Screener) 1. Over the past month, have you wished you were or wished you could go to sleep and not wake up? No 2. Over the past month, have you had any actual thoughts of killing yourself? No 3. Over the past month, have you been thinking about how you might do this? Response not required due to responses to other questions. 4. Over the past month, have you had these thoughts and had some intention of acting on them? Response not required due to responses to other questions. 5. Over the past month, have you started to work out or worked out the details of how to kill yourself? Response not required due to responses to other questions. 6. If yes, at any time in the past month did you intend to carry out this plan? Response not required due to responses to other questions. 7. In your lifetime, have you ever done anything, started to do anything, or prepared to do anything to end your life (for example, collected pills, obtained a gun, gave away valuables, went to the roof but didn't jump)? No 8. If YES, was this within the past 3 months? Response not required due to responses to other questions. /javad/ ESTRELLA GARIBAY [facility] Signed: 11/09/2023 08:35 ESTRELLA GARIBAY [facility] Nov 09, 2023 08:08 AM OPHTHALMOLOGY TECH ANGELITOIAN NOTE: LOCAL TITLE: APPLICATION SYSTEMS ENGINEER NOTE STANDARD TITLE: APPLICATION SYSTEMS ENGINEER NOTE DATE OF NOTE: NOV 09, 2023@08:08 ENTRY DATE: NOV 09, 2023@08:08:48 AUTHOR: ESTRELLA GARIBAY EXP COSIGNER: URGENCY: STATUS: COMPLETED Eye Start Exam Patient: SHANKAR GAMINO Sex: MALE SSN: [id number] Birthdate: [birth year] Chief complaint: Here for 7 mon f/u for VTD/MR today. *LTG f/u History of Present Illness: Patient states no vision changes. c/o OD feling more irritated--he's rubbing it more often. Denies any new floaters/flashes OU. No pain/discomfort OU. Drops Using: Timolol QAM OU pt states that he used to get 3 bottles per refill, but now he's only getting 1 bottle at a time--pt wondering did the rx order change? Eye History: Low tension glaucoma, ou Pseudophakia, OU Hx RD surgery, OU S/P dislocated IOL OS repair Full Exam Allergies: Patient has answered NKA No new Allergies. Past Medical History: Hypertension High cholesterol Social History: Alcohol use - yes Tobacco use - no Last refraction: 03/22/23 Vision: OD:CC(with glasses) OD: 20/40-2/+3 Pinhole: NI Vision: OS:CC(with glasses) 0S: 20/100+1 Pinhole: -1 Current glasses: -1.00 +1.25 X168 -1.50 +0.50 X150 +2.50 add Refraction TODAY: Manifest: YES Automated: NO OD: -1.00 +1.25 x160 20/30-3 fluctuating OS: -1.50 +0.75 x135 20/80 c time Add: +2.75 Near vision: OU 20/20-2 c time Comment: *pt wants rx for sv distance glasses only today--prefers NOT` to get BF Confrontational Rodriguez: Full to finger counting: Right: Yes Left: Yes Pupils: Right: Round Left: Round Size: Right: 3 Left: 4.5 React to light: Right: Yes Left: no--fixed Afferent pupil defect: Right:No Grade: Left: No Grade: Intra-ocular pressure (IOP): OD: 13 OS: 14 Applanation Dilation: mydriacyl 1% and neosynephrine OU @ 8:32 . /javad/ ESTRELLA GARIBAY [facility] Signed: 11/09/2023 08:32 ESTRELLA GARIBAY [facility]
--- OUTSIDE RECORDS SUMMARY | 2024-05-22 08:38 | XMS_ITS | Encounter Summary ---
Author Name [facility] [place] Organization [facility] [place] [facility] [place] Address [address] [place] [address] Care Team Providers Care Board Handler Name Role Phone YENNI ODELL Primary Care Provider Unavailabl e Insurance Providers: [...] PART A Apr 14, 2010 PART A [id number] [phone] Sissy GAMINO PATIENT MEDICARE (WNR) MEDICARE (M) PART B Apr 14, 2010 PART B [id number] [phone] Sissy GAMINO PATIENT Selected Encounter This section includes the information on record at [place] for the Encounter. Date/Time Encounter Type Encounter Description Reason Provider Source Dec 19, 2023 09:00 AM OFFICE O/P EST LOW 20 MIN PRIMARY CARE/MEDICINE ICD-10-CM I10 Essential (primary) hypertension ODELL HYMAN [place] Encounter Template Text not used by [place] Assessments - Encounter Diagnoses This section includes the primary and secondary diagnoses documented for the Encounter. Date/Time Primary/Secondary Diagnosis Diagnosis Name Provider Source Dec 19, 2023 10:00 AM PRIMARY Essential (primary) hypertension ODELL HMYAN [facility] Dec 19, 2023 10:00 AM SECONDARY Abnormal results of liver function studies ODELL HYMAN [facility] Dec 19, 2023 10:00 AM SECONDARY Alcohol use, unsp with unspecified [facility]-induced [facility] Dec 19, 2023 10:00 AM SECONDARY Encounter for immunization JANICE SINGH [facility] Dec 19, 2023 10:00 AM SECONDARY Foot drop, left foot ODELL HYMAN [facility] Dec 19, 2023 10:00 AM SECONDARY Hyperlipidemia, unspecified [facility] Plan of Treatment: Future Appointments (+ 6 months) and Future Tests (+/- 45 days) The Plan of Treatment section includes future care activities for the patient from [facility] [place] [facility] This section includes future appointments and future orders which are active, pending or scheduled. Future Appointments This section includes appointments that were scheduled to occur 6 months from the date of the Encounter, up to a maximum of 20 appointments. The data comes from all [facility] facilities. Appointment Date/Time Appointment Type Appointme nt Facility Name Feb 07, 2024 11:00 AM AM[place]ORY - NONE [place] [facility] Mar 26, 2024 08:00 AM AM[place]ULATORY - NONE [place] [facility] Mar 26, 2024 09:15 AM AM[place] - [place]ONE [place] [facility] [facility] Mar 26, 2024 10:00 AM AM[place]ORY [place]IC[place] [facility] Apr 22, 2024 10:45 AM [place]ONE [place] [facility] Apr 22, 2024 11:00 AM AM[place]ORY - NONE [place] [facility] May 05, 2024 07:00 [facility] Lab Results: +/- 30 days of the encounter This section includes the Chemistry and Hematology Lab Results on record with [place] for the patient. Radiology Reports and Pathology Reports are provided separately, in subsequent sections. Lab Results This section contains the Chemistry/Hematology Results that were resulted 30 days before or 30 daysafter the date of the Encounter. Date/Time Source Result Type Result - Unit Interpretation Reference Range Comment Dec 19, 2023 07:04 AM [facility] HEMOGLOBIN A1C Specimen Type: BLOOD Comment: Values obtained from A1C measurements can vary. For typical A1C assays, a reported value of 7.0 could actually be between 6.7 and 7.3 if measured by a reference method. A reported value of 9.0 could actually be between 8.7 and 9.3. Ref: http://www.ngs p.org/CAPdata. asp Ordering Provider: ODELL HYMAN Report Released Date/Time: Dec 18, 2023 10:41 PM Reporting Lab: [facility] [id number] Performing Lab: [facility] [id number] HEMOGLOBIN A1C 4.8 4.0-6.0 Dec 19, 2023 07:04 AM [facility] LIVER FUNCTION TESTS Specimen Type: PLASMA No comment entered. Ordering Provider: ODELL HYMAN Report Released Date/Time: Dec 18, 2023 10:41 PM Reporting Lab: [facility] [id number] Performing Lab: [facility] [id number] BILIRUBIN, TOTAL 2.6 mg/dL H 0.2-1.2 ALKALINE PHOSPHATASE 118 U/L 40-150 ALT/SGPT 40 U/L <44 AST/SGOT 47 U/L H 11-34 GAMMA GTP 30 U/L <54 DIR. BILIRUBIN 0.7 mg/dL H <0.5 Dec 19, 2023 07:04 AM [facility] LIPID PANEL,NON-FASTING Specimen Type: PLASMA No comment entered. Ordering Provider: ODELL HYMAN Report Released Date/Time: Dec 18, 2023 10:41 PM Reporting Lab: [facility] [id number] Performing Lab: [facility] [id number] CHOLESTEROL 187 mg/dL <199 .HDL 71 mg/dL >40 LDL CALCULATION 99 mg/dL <99 VLDL CALCULATION 17 mg/dL <29 NON HDL CHOLESTEROL 116 mg/dL <129 TRIG(NON FASTING) 83 mg/dL <149 Dec 19, 2023 07:04 AM [facility] BASIC METABOLIC PANEL+MG Specimen Type: PLASMA No comment entered. Ordering Provider: ODELL HYMAN Report Released Date/Time: Dec 18, 2023 10:41 PM Reporting Lab: [facility] [id number] Performing Lab: [facility] [id number] CREATININE 0.7 mg/dL 0.7-1.2 UREA NITROGEN 11 mg/dL 8-26 GLUCOSE 101 mg/dL H 70-100 SODIUM 140 mmol/L 136-145 POTASSIUM 4.1 mmol/L 3.5-5.1 CHLORIDE 107 mmol/L 98-107 CO2 24 mmol/L 22-29 CALCIUM 9.6 mg/dL 8.4-10.2 MAGNESIUM 1.6 mg/dL 1.6-2.6 ANION GAP 9 mmol/L 5-15 .CREAT EGFR(CKD-EPI) >90 >60 Dec 19, 2023 07:04 AM [facility] CBC & DIFF Specimen Type: BLOOD Comment: Automated Differential Performed Ordering Provider: ODELL HYMAN Report Released Date/Time: Dec 18, 2023 10:41 PM Reporting Lab: [facility] [id number] Performing Lab: [facility] [id number] WBC 7.53 10*3/uL 4.0-11.0 RBC 4.69 10*6/uL 4.6-6.2 HGB 15.5 g/dL 13.5-17.9 HCT 45.1 41-54 MCV 96.2 fL 80-100 MCH 33.0 pg 27-33 MCHC 34.4 g/dL 32.0-37.5 PLT 365 10*3/uL 150-400 MPV 8.6 fL 7.4-10.4 NEUT 53.1 40.0-80.0 LYMPHS 24.6 15.0-45.0 MONO 16.7 H 2.0-12.0 EOSINO 4.5 0.0-6.0 BASO 0.8 0.0-2.0 RDW 13.0 11.5-14.5 ABS LYMPH 1.85 10*3/uL 1.0-4.0 ABS MONO 1.26 10*3/uL H 0.1-1.0 ABS NEUT 4.00 10*3/uL 2.0-7.7 ABS EOS 0.34 10*3/uL 0-0.5 ABS BASO 0.06 10*3/uL 0-0.2 IG(META,MYELO ,PRO) 0.3 ABS IMMATURE GRAN 0.02 10*3/uL 0-0.1 Vital Signs: All taken on the encounter date This section contains inpatient and outpatient Vital Signs collected on the date of the Encounter. Date/Time Temperature Pulse Blood Pressure Respiratory Rate SP02 Pain Height Weight Body Mass Index Source Dec 19, 2023 09:27 AM 143/80 [place] [facility] Dec 19, 2023 08:40 AM 97.6 81 169/80 16 98 0 65.5 146.9 24 [place] [facility] Immunizations: All administered on the encounter date This section contains immunizations associated to the Encounter. Immunization Series Date Issued Reaction Comments TDAP Dec 19, 2023 Social History: Smoking Status (Most current) and Tobacco Use (All prior to encounter date) This section includes the most current, and the historical, smoking and tobacco- related health factors from the [place] facility where the Encounter took place. Current Smoking Status This section includes the most current smoking, or tobacco-related health factor, from the [place] facility where the Encounter took place. Date/Time Current Smoking Status Comment Facil ity Dec 19, 2023 09:00 AM [place]-TOBACCO NEVER USED [facility] Tobacco Use History This section includes a history of the smoking, or tobacco-related health factors, that were collected on or before the date of the Encounter. The data comes from the [place] facility where the Encounter took place. Date/Time Smoking Status/Tobacco Use Comment F acility Nov 08, 2022 08:00 AM [place]-TOBACCO NEVER USED [facility] Oct 19, 2021 10:00 AM [place]-TOBACCO NEVER USED [facility] October 01, 2018 11:22 AM [place]-TOBACCO NEVER USED [facility] Jul 31, 2017 12:37 PM LIFETIME NON-TOBACCO USER [facility] Aug 10, 2016 07:51 AM LIFETIME NON-TOBACCO USER [facility] Jul 21, 2015 07:47 AM LIFETIME NON-TOBACCO USER [facility] October 07, 2014 11:04 AM LIFETIME NON-TOBACCO USER [facility] October 04, 2013 09:48 AM LIFETIME NON-TOBACCO USER [facility] Advance Directives: All historical and current Section Date Range: From patient's date of to the date document was created. This section includes ALL of a patient's completed or amended [place] Advance and Rescinded Directives. The entries below indicate that a directive exists for the patient, but an actual copy is not included with this document. The data comes from all [place] facilities. Date Advance Directives Provider Source Mar 24, 2010 CLINICAL WARNING [facility] Dec 07, 2004 ADVANCE DIRECTIVE LISA SALOMON [facility] Encounter Notes: All associated encounter notes This section contains the clinical notes associated to the Encounter. Date/Time Encounter Note(s) Provider Source Dec 19, 2023 10:00 AM LETTERS: LOCAL TITLE: FOLLOW UP RESULTS LETTER STANDARD TITLE: LETTERS DATE OF NOTE: DEC 19, 2023@10:00 ENTRY DATE: DEC 19, 2023@10:00:26 AUTHOR: ODELL HYMAN EXP COSIGNER: URGENCY: STATUS: COMPLETED [facility] [address] [place] [address] Dec SHANKAR GAMNIO [address] [facility] [address] Dear : I am writing to inform you of the results of the tests you had done at the [facility]. The tests below were performed and are satisfactory unless otherwise noted. - Cholesterol Tests (HDL = good and LDL = bad) CHOLESTEROL 187 (12/19/23) (prefer less than 200) HDL 71 (12/19/23) (prefer more than 39) LDL CALCULATION 99 (12/19/23) (prefer less than 70) TRIGLYCERIDE 83 (prefer less than 150) . - Complete Blood Count (red/white blood cell counts and platelets) White count: WBC 7.53 (12/19/23) (normal is 4.0-11.0) Hemoglobin: HGB 15.5 (12/19/23) (normal Male is 13.5-17.9; Female is 11.5-16) Hematocrit: HCT 45.1 (12/19/23) (normal Male is 41-54; Female is 34.5- 48) Platelets: PLT 365 (12/19/23) (normal is 150-400) . - Electrolytes including sodium and potassium SODIUM 140 (12/19/23) (normal is 136-145) POTASSIUM 4.1 (12/19/23) (normal is 3.5-5.1) CALCIUM 9.6 (12/19/23) (normal is 8.4-10.2) MAGNESIUM 1.6 (12/19/23) (normal is 1.6-2.6) . - Kidney function CREATININE 0.7 (12/19/23) (normal Male 0.7-1.2; normal Female is 0.5-1.0) UREA NITROGEN 11 (12/19/23) (normal Male is 8-26; normal Female is 7-20) . - Liver function Tests AST/SGOT 47 H (12/19/23) (normal 5-34) ALT/SGPT 40 (12/19/23) (normal </= 55) ALK PHOSPHATASE 118 (12/19/23) (normal 40-150) Collection DT Specimen Test Name Result Units Ref Range 12/19/2023 07:04 PLASMA GAMMA GTP 30 U/L Ref: <=54 BILIRUBIN, TOTAL 2.6 H (12/19/23) (normal 0.3-1.2) . - Blood Sugar GLUCOSE 101 H (12/19/23) (normal is 70 - 106 if fasting) Comments: please reduce alcohol use. See you back in 3 months for follow up with lab. If you have any further questions or problems, please contact our nursing staff or me at the following number: [phone]. Sincerely, ODELL HYMAN MD Staff Physician ODELL HYMAN [facility] Dec 19, 2023 09:23 AM INTERNAL MEDICINE NOTE: LOCAL TITLE: MEDICINE CLINIC NOTE STANDARD TITLE: INTERNAL MEDICINE NOTE DATE OF NOTE: DEC 19, 2023@09:23 ENTRY DATE: DEC 18, 2023@22:24:01 AUTHOR: ODELL HYMAN EXP COSIGNER: URGENCY: STATUS: COMPLETED Nurses notes reviewed and agree. This note is an edited version based on my previous clinic visit notes and/or based on review of [facility] records. Chief complaint: f/u. Last seen in 10/2022 HPI: The patient is a 78 year old MALE h/o HTN, chronic left foot drop on AFO, carotid stenosis presenting here for f/u - doing stable - pt has BP machine at home- BP at home ok--128-130/79-80. Had coffee this AM before appt - on cream for psoriasis, he will call in when he needs refill - walks almost 6 miles daily weather permitting - has neck DJD and got OTC cream for pain but it said not to use it on the neck? pt does not remmember the name, will go home to check the name and bring it to clinic Review of Systems: No nasal congestion/drainage/sore throat. No CP/palpitations/PND/Orthopnea . No cough/sputum/SOB. No dysuria/hematuria. No abdominal pain/N/V/D. FH: - cancer: none - DM: none - ASCVD: father of [place] at age 59, sister and brother of heart problem at age 40s SH: , passed way from GBM in 06/2015, 6 children. 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 - tobacco: never - ETOH: 1 whisky (4oz) at night before bedtime - Drug: none Past medical history: 1. HTN, Benign 2. Psoriasis, hardly uses any cream now per pt 3. Retinal Detachment/Pseudophakia 4. Urethral stricture s/p dilatation 2000 and 09/2011 5. LEFT foot drop, chronic 2/2 h/o L leg trauma from chainsaw accident 1991, 6. Hyperlipidemia 7. Hydrocele Nos - H/o scrotal surgery in the remote past (-unknown surgery--?hydrocelectomy) - Scrotal US , 06/11/2008. Right-sided hydrocele and several right-sided epididymal head cysts are noted. The left testicle with a physiologic volume of fluid is seen surrounding the left testicle. Several small epididymal head cysts are noted on the left. No intratesticular abnormality is identified. - Scrotal u/s 07/2011 No acute pathology identified in the scrotum. Moderate- sized septated right-sided hydrocele, not significantly changed in appearance since 06/11/2008 exam. - has seen urology, not interested in surgery 8. Fx Cerv Vertebra, Unsp dxed 03/2010 s/p fall from a deer stand - seen neurosurgery, no neurologic symptoms, treated conservatively, discharged from neurosurgery clinic - CT Spine Cervical w/o-12/27/2022 [facility] No acute fracture or traumatic subluxation. Moderate multilevel spondylosis. 9. Colles' Fx (left wrist fracture) - left distal radius and corcoid fx, seen orho, treated conservatively with cast, discharged from ortho 07/2010 10. Pulmonary nodule, benign - chest CT 09/2014 Irregularly-shaped 5 mm pulmonary nodule right lower lobe is stable since 09/06/2012. Pt discharged from pulm nodule clinic 11. 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 Pt asymptomatic, no bone pain at this area. ALP nl, ca nl. 12. Hematuria 2/2 UTI, treated with ABX, recheck UA, hematuria resolved 10/2018 13. Elevated liver enzymes level 14. 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 15. Alcohol intake above recommended sensible limits 16. Pain of toe of right foot 17. Exposure to potentially hazardous substance ([facility] [id number]) - Entered through [facility]/[address] Documentation Initiative 18. Carotid stenosis - CT ANGIOGRAM NECK 12/27/2022 at [facility] Moderate (60%) stenosis at the origin of the left internal carotid artery by NASCET criteria caused by non- calcified plaque with a 1.5mm residual lumen. Mild left vertebral artery origin stenosis. 19. MAJANO - CT HEAD 12/27/2022 [facility] CLINICAL HISTORY: Patient with headache. No intracranial hemorrhage or territorial infarction. Mild microangiopathic changes and diffuse parenchymal volume loss. Allergies: Patient has answered NKA Active and Recently Outpatient Medications (including Supplies): Inactive Outpatient Medications Status 1) AMLODIPINE BESYLATE 10MG TAB TAKE ONE TABLET BY MOUTH EVERY DAY 2) ATORVASTATIN CALCIUM 20MG TAB TAKE ONE TABLET BY MOUTH AT BEDTIME FOR CHOLESTEROL 3) ATORVASTATIN CALCIUM 40MG TAB TAKE ONE-HALF TABLET BY DISCONTINUED MOUTH AT BEDTIME FOR CHOLESTEROL (EDIT) 4) DOXYCYCLINE HYCLATE 100MG TAB TAKE ONE TABLET BY MOUTH TWICE A DAY 5) TIMOLOL MALEATE 0.5% OPH SOLN INSTILL 1 DROP IN BOTH EYES EVERY MORNING FOR GLAUCOMA OTC, Herbals, and Private MD medications or additional medication information: Physical Exams: Gloves are used when examining patient Vitals: Blood Pressure: 169/80 (12/19/2023 08:40) Pulse: 81 (12/19/2023 08:40) Respiration: 16 (12/19/2023 08:40) Temperature: 97.6 F [36.4 C] (12/19/2023 08:40) Weight: 146.9 lb [66.63 kg] (12/19/2023 08:40) Height: 65.5 in [166.4 cm] (12/19/2023 08:40) BMI: 24.1 O2 Sat: 98% (12/19/2023 08:40) Pain: 0 (12/19/2023 08:40) O2 Sat: Gen: AAO, nad, pt appears at his stated age, interactive and cooperative HEENT: Per, eomi, no scleral icterus, no conjunctivitis. Neck: no JVD Lungs: cta b Heart: rrr, nl s1s2, no m/r/g Abd: s, nt, nd. Normoactive bs. No hsm. Ext: no c/e/e. Healed scar at left lower leg from chainsaw accident with chronic left foot drop (able to tiptoe, but not heel walk on left foot) Neuro: GOMEZ. H/o chronic left foot drop. Lab Data: (x)Patient was informed of available lab, imaging, and other study results associated with today's visit. SMA-7: SODIUM 140 (12/19/23) POTASSIUM 4.1 (12/19/23) CHLORIDE 107 (12/19/23) CO2 24 (12/19/23) UREA NITROGEN 11 (12/19/23) CREATININE 0.7 (12/19/23) GLUCOSE 101 H (12/19/23) CBC: WBC 7.53 (12/19/23) HGB 15.5 (12/19/23) HCT 45.1 (12/19/23) PLT 365 (12/19/23) HA1C: Collection DT Specimen Test Name Result Units Ref Range 12/19/2023 07:04 BLOOD !! HEMOGLOBIN A1C 4.8 % 4.0 - 6.0 !! Indicates COMMENTS AVAILABLE...Refer to Interim Lab Report. No data available Lipids: CHOLESTEROL 187 (12/19/23) HDL 71 (12/19/23) LDL CALCULATION 99 (12/19/23) LDL Measured: TRIGLYCERIDE____ LFTs: SGOT 47 H (12/19/23) SGPT 40 (12/19/23) PSA - NONE FOUND TSH ____ URIC ACID____ Urine Microalbumin: ALB/CREAT RATIO____ Other Lab Data: EKG: Imaging: Assessment/Plan: 1. HTN: HCTZ/lisinopril was not effective and d/alfonso by ED in 08/20. BP good control at home, higher in clinic. Pt had coffee this AM. - continue amlodipine 10mg - pt to continue to monitor BP at home, goal <140/90 and will call clinic if BP is elevated. Consider HCTZ/Triamterene 2. Hyperlipidemia: Goal LDL<70 due to carotid stenosis. Chol suboptimal control 12/2023 LDL 99 - Change Lipitor 20mg to rosuvastatin 20mg. Ok to finish up his lipitor supply before switching to rosuvasatin - recheck in 3 months 3. Carotid stenosis - will get carotid u/s for f/u-would like to get it same time with rtc next visit in 3 months per pt 4. Elevated AST, nl ALT: likely 2/2 alcohol - advised to reduce alcohol - will follow 5. HCM: - colonoscopy: Flex sig 01/2011 Perianal skin tag. Diverticulosis in the sigmoid colon. FIT test neg 10/2018. Dicussed, pt elects NO further screening due to age. - PSA ok 10/07/14 - TSH ok 10/19/21 - AAA screen: nl abd CT at OSH 07/06/12 - HIV screen: pt not interested - Hep C screen: NEG in 2004, NEG for A, B and C 06/11/2019 Tobacco: () Pt smokes or uses tobacco products and was counseled to d/c. Medications including bupropion, nicotine replacement therapy have been discussed, and will be ordered at patient request. () Pt is not using tobacco products now but has used them in the past year. (Pt counseled to remain abstinent.) () Pt hasn't used tobacco products for a year or more. (x) Pt has never used tobacco products. RTC 3 months with lab More than 50% of this 25 min visit spent in counselling and coordinating care regarding reviewing labs, medications, discussing medical issues mentioned above and answering patient's questions. (x) Patient/Caregiver indicates readiness to learn, verbalizes understanding, agreement and satisfaction with the treatment plan. (x) [place]/Caregiver indicates readiness to learn and has been instructed on action, dose, frequency, and side effects of the medication. /Caregiver verbalizes understanding. Medication Reconciliation: Education Evaluations *Was medication education provided for NEW medications or CHANGES to medications? (including medication name, dose, route, reason for use, and potential side effects). Yes. Verbal education was provided to patient/caregiver and patient/caregiver verbalized understanding. TERATOGENIC MED & CONTRACEPTION REVIEW (Optional)... = MEDICATION RECONCILIATION = Active and Recently Outpatient Medications (including Supplies): Issue Date Status Last Fill Pending Outpatient Medications Refills Expiration 1) AMLODIPINE BESYLATE 10MG TAB Qty: 90 PENDING Sig: TAKE ONE TABLET BY MOUTH EVERY Refills: 0 DAY 2) ROSUVASTATIN CA 20MG TAB Qty: 90 Sig: PENDING TAKE ONE TABLET BY MOUTH EVERY DAY Refills: 0 Issue Date Status Last Fill Inactive Outpatient Medications Refills Expiration 1) AMLODIPINE BESYLATE 10MG TAB Qty: 90 Issu:10-29-22 for 90 days Sig: TAKE ONE TABLET BY Refills: 0 Last:09-22-23 MOUTH EVERY DAY Expr:10-30-23 2) ATORVASTATIN CALCIUM 20MG TAB Qty: 90 Issu:10-03-22 for 90 days Sig: TAKE ONE TABLET BY Refills: 0 Last:09-22-23 MOUTH AT BEDTIME FOR CHOLESTEROL Expr:10-04-23 3) ATORVASTATIN CALCIUM 40MG TAB Qty: 45 DISCONTINUED Issu:09-28-22 for 90 days Sig: TAKE ONE-HALF TABLET (EDIT) Last:10-03-22 BY MOUTH AT BEDTIME FOR CHOLESTEROL Refills: 3 Expr:09-29-23 4) DOXYCYCLINE HYCLATE 100MG TAB Qty: 20 Issu:10-30-23 for 10 days Sig: TAKE ONE TABLET BY Refills: 0 Last:10-30-23 MOUTH TWICE A DAY Expr:11-29-23 5) TIMOLOL MALEATE 0.5% OPH SOLN Qty: 5 Issu:10-19-23 for 30 days Sig: INSTILL 1 DROP IN Refills: 0 Last:10-22-23 BOTH EYES EVERY MORNING FOR GLAUCOMA Expr:11-18-23 7 Total Medications /es/ ODELL HYMAN MD Staff Physician Signed: 12/19/2023 10:00 ODELL HYMAN [facility] Dec 19, 2023 08:42 AM INTERNAL MEDICINE OUTPATIENT NOTE: LOCAL TITLE: MEDICINE CLINIC NURSING NOTE STANDARD TITLE: INTERNAL MEDICINE OUTPATIENT NOTE DATE OF NOTE: DEC 19, 2023@08:42 ENTRY DATE: DEC 19, 2023@08:42:24 AUTHOR: MONISHA SINGH EXP COSIGNER: URGENCY: STATUS: COMPLETED TYPE OF VISIT: Appointment Check In Type of appointment: In-person appointment REASON FOR VISIT: Annual ALLERGIES: Patient has answered NKA VITAL SIGNS: Blood Pressure: 169/80 (12/19/2023 08:40) Pulse: 81 (12/19/2023 08:40) Respiration: 16 (12/19/2023 08:40) Temperature: 97.6 F [36.4 C] (12/19/2023 08:40) Weight: 146.9 lb [66.63 kg] (12/19/2023 08:40) Height: 65.5 in [166.4 cm] (12/19/2023 08:40) BMI: 24.1 O2 Sat: 98% (12/19/2023 08:40) Pain: 0 (12/19/2023 08:40) PAIN SCREEN: Patient is not having significant pain that they wish to discuss with their provider today. MEDICATION Over the Counter/Herbal Medications: The patient states that they take some outside medications and/or herbals. COVID-19 Immunization: Refused Pfizer Monovalent COVID-19 vaccine Immunization: COVID-19 (PFIZER), MRNA, LNP-S, PF, LATESHA-SUCROSE, 30 MCG/0.3 ML (AGES 12+ YEARS) Refusal Reason: PATIENT DECISION Patient refuses all immunization(s) in the COVID-19 group Date Documented: 12/19/23 08:43 Depression Screening: Perform PHQ-2 A PHQ-2 screen was performed. The score was 0 which is a negative screen for depression. Over the past two weeks, how often have you been bothered by the following problems? 1. Little interest or pleasure in doing things Not at all 2. Feeling down, depressed, or hopeless Not at all Alcohol Use Screen (AUDIT-C): Alcohol Screen: SCREEN FOR ALCOHOL (AUDIT-C) An alcohol screening test (AUDIT-C) was negative (score=4). 1. How often did you have a drink containing alcohol in the past year? Consider a drink to be a 12 ounce can or bottle of regular beer, 8 ounces of malt liquor, a 5 ounce glass of table wine, or a 1.5 ounce shot of liquor (like scotch, gin, or vodka). Four or more times a week 2. How many drinks containing alcohol did you have on a typical day when you were drinking in the past year? One or two drinks 3. How often did you have six or more drinks on one occasion in the past year? Never Nursing Annual Screening: Whole Health Screen is due OR due soon (within 90 days). Whole Health Screening Why is addressing your overall health important to you? Patient states that He wants to live a good healthy life What do you want your health for (why do you want to be healthy)? Patient states that He wants to live longer. Fall History Screen During the past 12 months, have you had any falls? Patient reports having had 2 or more falls within the past 12 months. MEDICATIONS: Patient does not have an active prescription for one of the following medications: Antihypertensives, Antidepressants, Antipsychotics, Diuretics, or Opioid Analgesics (Contolled Substance medications used for pain). FALL RISK ADVICE: Fall Risk Advice provided. Handout entitled Be Safe: Prevent Falls reviewed and given to patient and/or significant other. Patient instructed to discuss fall risk with provider. Script Talk Screen Are you able to read your prescription bottles with your glasses, magnifiers or other aids? Yes or patient not taking any prescriptions. Skin Screen Patient reports any current pressure ulcers, a history of pressure ulcers, or a wound from a medical service technician or Patient is bed-confined or a wheelchair-user or Patient requires assistance to transfer/change position No, Skin Screen is Negative Home Abuse/Violence Screen Is your home free of abuse and violence? Yes MOVE! Program Screen Body Mass Index (BMI)= 24.1 [place]: Collection DT Specimen Test Name Result Units Ref Range 12/19/2023 07:04 BLOOD !! HEMOGLOBIN A1C 4.8 % 4.0 - 6.0 !! Indicates COMMENTS AVAILABLE...Refer to Interim Lab Report. [place] Hgb A1C: No data available [place] Hgb A1C: No data available Point of Care Hgb A1C: POC HGB A1C____ Outpatient Nutrition Screen Body Mass Index (BMI)= 24.1 [place]: Collection DT Specimen Test Name Result Units Ref Range 12/19/2023 07:04 BLOOD !! HEMOGLOBIN A1C 4.8 % 4.0 - 6.0 !! Indicates COMMENTS AVAILABLE...Refer to Interim Lab Report. [place] Hgb A1C: No data available [place] Hgb A1C: No data available Point of Care Hgb A1C: POC HGB A1C____ Is patient's BMI less than 18.5? No Does patient have swallowing, coughing, or chewing problems affecting oral intake? No Has patient experienced unplanned weight loss or gain greater than 10 pounds over the last 2 months? No Is patient's Hgb A1C (Glycosylated Hemoglobin) greater than 9.5? No Is patient receiving Total Parenteral Nutrition (TPN) or Tube Feedings? No Patient Health Education Screen BARRIERS/SPECIAL NEEDS: Physical limitations Hearing limitations Visual limitations PREFERRED STYLE OF LEARNING: Watching something Client Assistive Service (BONIFACIO) Screen Does the patient require assistance with outpatient visit? Yes Patient meets BONIFACIO criteria and DOES NOT HAVE a BONIFACIO Flag, BONIFACIO consult placed. Tobacco Use Screening: The patient has never used tobacco. Homelessness/Food Insecurity Screen: In the past 2 months, have you been living in stable housing that you own, rent, or stay in as part of a household? Yes - Living in stable housing. Are you worried or concerned that in the next 2 months you may NOT have stable housing that you own, rent, or stay in as part of a household? No - Not worried about housing near future [facility] [place] reports the following: Within the past 12 months, you worried whether your food would run out before you got money to buy more. Never true Within the past 12 months, the food you bought just didn't last and you didn't have money to get more. Never true Food Assistance Programs [facility] Food Assistance Programs [facility] Entry of Outside Tests/Reports: Td / Tdap Immunization: Administered: TDAP Date Administered: Dec 19, 2023 08:48 Air Sealing Technician: [employer] Lot: [id number] Exp Date: Jan 23, 2026 [facility]: [phone] Admin Route/Site: INTRAMUSCULAR/RIGHT DELTOID Dosage: 0.5mL Vaccine Information Statement(s): TDAP (TETANUS, DIPHTHERIA, PERTUSSIS) VACCINE VIS Dec 18, 2020 (GREEK) Order By: Policy Administered By: Monisha Singh Vaccine Information Sheet (VIS) was given to the patient/caregiver, education regarding adverse reactions was discussed, as well as barriers to learning, if any, were acknowledged. /javad/ MONISHA SINGH LPN Signed: 12/19/2023 08:49 MONISHA SINGH [facility]
--- OUTSIDE RECORDS SUMMARY | 2024-05-22 08:38 | XMS_ITS | Continuity of Care Document ---
Author Name [facility] Organization [facility] Care Team Providers Care Associate Business Analyst Name Role Phone [facility] Unavailable Unavailable Problems Combined list of problems from Department of Defense and Veterans Affairs facilities. It does not include entries that were removed or entered in error. Problem Status Onset Date Problem Type Date of Resolution Comments Source Exposure to potentially hazardous substance ([facility] [id number]) Active 024 Condition Jul 20, 2023 Entered By: DAYNA HOPPER Comment: [facility] [employer] [place] Documentation Initiative [facility] Alcohol intake above recommended sensible limits Active Condition [facility] Backache (ICD-9-CM 724.5) Active Condition [facility] Colles' Fx Active Condition [facility] Elevated liver enzymes level Active Condition [facility] Fx Cerv Vertebra, Unsp Active Condition [facility] Gilbert syndrome Active Condition [facility] Hydrocele Nos Active Condition [facility] [place] 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[place] [facility] Hyperlipidemia (SNOMED CT 26051949) Active Condition [place] [facility] Hypertension (SNOMED CT 56471725) Active Condition [facility] Left foot drop Active Condition [facility] [facility] Pain of toe of right foot Active Condition [facility] 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 [place] [facility] Psoriasis Active Condition [facility] 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 [facility] Urethral Stricture Nos Active Condition [facility] Diagnosis: ICD-10-CM M21.372 Foot drop, left foot Active Diagnosis [facility] Diagnosis: ICD-10-CM I10 Essential (primary) hypertension Active Diagnosis [facility] Diagnosis: ICD-10-CM H40.003 Preglaucoma, unspecified, bilateral Active Diagnosis [facility] Diagnosis: ICD-10-CM S20.362A Insect bite (nonvenomous) of left front wall of thorax, init Active Diagnosis [facility] Diagnosis: ICD-10-CM Z23 Encounter for immunization Active Diagnosis [facility] Diagnosis: ICD-10-CM 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 Medication Details Route Status Patient Instructions Prescription Expires Prescription Number Last Dispense Date Ordering Provider Order Date Order Qty Source AMLODIPINE BESYLATE 10MG TAB TAKE ONE TABLET BY MOUTH EVERY DAY ORAL ACTIVE 12/19/2024 [id number] REG HYMAN T H 2023 90 [facility] AMLODIPINE BESYLATE 10MG TAB TAKE ONE TABLET BY MOUTH EVERY DAY ORAL DISCONT INUED 10/30/2023 [id number] 4 REG HYMAN T H 2022 90 [facility] ATORVASTATI N CA 20MG TAB TAKE ONE TABLET BY MOUTH AT BEDTIME FOR CHOLESTE ROL ORAL DISCONT INUED BY PROVIDE R 10/04/2023 [id number] REG HYMAN H 2022 90 [facility] DOXYCYCLINE HYCLATE 100MG TAB TAKE ONE TABLET BY MOUTH TWICE A DAY ORAL 11/29/2023 [id number] KOTA VASQUEZ 2023 20 [facility] ROSUVASTATI N CA 20MG TAB TAKE ONE TABLET BY MOUTH EVERY DAY FOR CHOLESTE ROL ORAL ACTIVE 12/19/2024 [id number] REG HYMAN T H 2023 90 [facility] TIMOLOL MALEATE 0.5% SOLN,OPH INSTILL 1 DROP IN BOTH EYES EVERY MORNING FOR GLAUCOMA OPHTHA LMIC 11/18/2023 [id number] NORMA DANIELS 2023 5 [facility] Immunizations Combined list of available immunizations from the Department of Defense and Veterans Affairs facilities. Immunization Series Date Given Administered By Site Reaction Lot Number CVX Code Drug Wood Tank Builder Status Comments Source TDAP 2023 JANICE GARCIA RIGHT DELTO ID [id number] 115 complet ed [facility] ZOSTER RECOMBINANT 2 2022 STIVEN SLADE LEFT DELTO ID [id number] 187 complet ed @@ ENTER DILUENT LOT# HERE [facility] ZOSTER RECOMBINANT 1 2022 YASSINE CARRERA RIGHT DELTO ID [id number] 187 complet ed [id number] [facility] COVID-19 (PFIZER), MRNA, LNP-S, PF, 30 MCG/0.3 ML DOSE 2 2020 208 complet ed [facility] COVID-19 (PFIZER), MRNA, LNP-S, PF, 30 MCG/0.3 ML DOSE 1 2020 208 complet ed [facility] PNEUMOCOCCAL CONJUGATE PCV 13 2015 133 complet ed [employer]; [id number]; 09/2016 [facility] TDAP 2013 115 complet ed glaxo yepez veras ,[id number], [facility] PNEUMOCOCCAL, UNSPECIFIED FORMULATION 2011 109 complet ed [employer], [id number], [id number] [facility] ZOSTER LIVE 2011 121 complet ed [employer], [id number], [id number] [facility] TD(ADULT) UNSPECIFIED FORMULATION 2004 139 complet ed within the last 10years [facility] TD (ADULT), 2 LF TETANUS TOXOID, PRESERVATIVE FREE, ADSORBED 1998 09 complet ed [facility] Results Combined list of recent chemistry, hematology and other laboratory results from Department of Defense and Veterans Affairs, ranging from 15 months to all on record, depending upon the facility. Order Name Results Value Reference Range Date Interpretation Specimen Comments Source LIPID PANEL,NON -FASTING CHOLESTEROL [MASS/VOLUM E] IN SERUM OR PLASMA 147 mg/dL <199 - 199 03/26 Specimen Type: PLASMA No comment entered. Ordering Provider: ODELL HYMAN Report Released Date/Time: Dec 19, 2023 09:45 AM Reporting Lab: [facility] [address] Performing Lab: [facility] [address] [place] [facility] LIPID PANEL,NON -FASTING CHOLESTEROL IN HDL [MASS/VOLUM E] IN SERUM OR PLASMA 64 mg/dL 40 03/26 Specimen Type: PLASMA No comment entered. Ordering Provider: ODELL HYMAN Report Released Date/Time: Dec 19, 2023 09:45 AM Reporting Lab: [facility] [address] Performing Lab: [facility] [address] [place] [facility] LIPID PANEL,NON -FASTING CHOLESTEROL IN LDL [MASS/VOLUM E] IN SERUM OR PLASMA BY CALCULATION 68 mg/dL <99 - 99 03/26 Specimen Type: PLASMA No comment entered. Ordering Provider: ODELL HYMAN Report Released Date/Time: Dec 19, 2023 09:45 AM Reporting Lab: [facility] [address] Performing Lab: [facility] [address] [place] [facility] LIPID PANEL,NON -FASTING CHOLESTEROL IN VLDL [MASS/VOLUM E] IN SERUM OR PLASMA BY CALCULATION 15 mg/dL <29 - 29 03/26 Specimen Type: PLASMA No comment entered. Ordering Provider: ODELL HYMAN Report Released Date/Time: Dec 19, 2023 09:45 AM Reporting Lab: [facility] [address] Performing Lab: [facility] [address] [place] [facility] LIPID PANEL,NON -FASTING CHOLESTEROL NON HDL [MASS/VOLUM E] IN SERUM OR PLASMA 83 mg/dL <129 - 129 03/26 Specimen Type: PLASMA No comment entered. Ordering Provider: ODELL HYMAN Report Released Date/Time: Dec 19, 2023 09:45 AM Reporting Lab: [facility] [address] Performing Lab: [facility] [address] [place] [facility] LIPID PANEL,NON -FASTING TRIGLYCERID E [MASS/VOLUM E] IN SERUM OR PLASMA 74 mg/dL <149 - 149 03/26 Specimen Type: PLASMA No comment entered. Ordering Provider: ODELL HYMAN Report Released Date/Time: Dec 19, 2023 09:45 AM Reporting Lab: [facility] [address] Performing Lab: [facility] [address] [place] [facility] LIVER FUNCTION TESTS BILIRUBIN.T OTAL [MASS/VOLUM E] IN SERUM OR PLASMA 1.7 mg/dL 0.2 - 1.2 03/26 H Specimen Type: PLASMA No comment entered. Ordering Provider: ODELL HYMAN Report Released Date/Time: Dec 19, 2023 09:45 AM Reporting Lab: [facility] [address] Performing Lab: [facility] [address] [place] [facility] LIVER FUNCTION TESTS ALKALINE PHOSPHATASE [ENZYMATIC ACTIVITY/VO LUME] IN SERUM OR PLASMA 101 U/L 40 - 150 03/26 Specimen Type: PLASMA No comment entered. Ordering Provider: ODELL HYMAN Report Released Date/Time: Dec 19, 2023 09:45 AM Reporting Lab: [facility] [address] Performing Lab: [facility] [address] [place] [facility] LIVER FUNCTION TESTS ALANINE AMINOTRANSF ERASE [ENZYMATIC ACTIVITY/VO LUME] IN SERUM OR PLASMA 28 U/L <44 - 44 03/26 Specimen Type: PLASMA No comment entered. Ordering Provider: ODELL HYMAN Report Released Date/Time: Dec 19, 2023 09:45 AM Reporting Lab: [facility] [address] Performing Lab: [facility] [address] [place] [facility] LIVER FUNCTION TESTS ASPARTATE AMINOTRANSF ERASE [ENZYMATIC ACTIVITY/VO LUME] IN SERUM OR PLASMA 35 U/L 11 - 34 03/26 H Specimen Type: PLASMA No comment entered. Ordering Provider: ODELL HYMAN Report Released Date/Time: Dec 19, 2023 09:45 AM Reporting Lab: [facility] [address] Performing Lab: [facility] [address] [place] [facility] LIVER FUNCTION TESTS GAMMA GLUTAMYL TRANSFERASE [ENZYMATIC ACTIVITY/VO LUME] IN SERUM OR PLASMA 21 U/L <54 - 54 03/26 Specimen Type: PLASMA No comment entered. Ordering Provider: ODELL HYMAN Report Released Date/Time: Dec 19, 2023 09:45 AM Reporting Lab: [facility] [address] Performing Lab: [facility] [address] [place] [facility] LIVER FUNCTION TESTS BILIRUBIN.D IRECT [MASS/VOLUM E] IN SERUM OR PLASMA 0.6 mg/dL <0.5 - 0.5 03/26 H Specimen Type: PLASMA No comment entered. Ordering Provider: ODELL HYMAN Report Released Date/Time: Dec 19, 2023 09:45 AM Reporting Lab: [facility] [address] Performing Lab: [facility] [address] [place] [facility] HEMOGLOBI N A1C HEMOGLOBIN A1C/HEMOGLO BIN.TOTAL IN BLOOD 4.8 4.0 - 6.0 12/18 Specimen Type: BLOOD Comment: Values obtained from A1C measurement s can vary. For typical A1C assays, a reported value of 7.0 could actually be between 6.7 and 7.3 if measured by a reference method. A reported value of 9.0 could actually be between 8.7 and 9.3. Ref: http://www. ngsp.org/[place] Pdata.asp Ordering Provider: ODELL HYMAN Report Released Date/Time: Dec 18, 2023 10:41 PM Reporting Lab: [facility] [address] Performing Lab: [facility] [address] [facility] BILIRUBIN.T OTAL [MASS/VOLUM E] IN SERUM OR PLASMA 2.6 mg/dL 0.2 - 1.2 12/18 H Specimen Type: PLASMA No comment entered. Ordering Provider: ODELL HYMAN Report Released Date/Time: Dec 18, 2023 10:41 PM Reporting Lab: [facility] [address] Performing Lab: [facility] [address] [facility] LIVER FUNCTION TESTS ALKALINE PHOSPHATASE [ENZYMATIC ACTIVITY/VO LUME] IN SERUM OR PLASMA 118 U/L 40 - 150 12/18 Specimen Type: PLASMA No comment entered. Ordering Provider: ODELL HYMAN Report Released Date/Time: Dec 18, 2023 10:41 PM Reporting Lab: [facility] [address] Performing Lab: [facility] [address] [place] [facility] LIVER FUNCTION TESTS ALANINE AMINOTRANSF ERASE [ENZYMATIC ACTIVITY/VO LUME] IN SERUM OR PLASMA 40 U/L <44 - 44 12/18 Specimen Type: PLASMA No comment entered. Ordering Provider: ODELL HYMAN Report Released Date/Time: Dec 18, 2023 10:41 PM Reporting Lab: [facility] [address] Performing Lab: [facility] [address] [place] [facility] LIVER FUNCTION TESTS ASPARTATE AMINOTRANSF ERASE [ENZYMATIC ACTIVITY/VO LUME] IN SERUM OR PLASMA 47 U/L 11 - 34 12/18 H Specimen Type: PLASMA No comment entered. Ordering Provider: ODELL HYMAN Report Released Date/Time: Dec 18, 2023 10:41 PM Reporting Lab: [facility] [address] Performing Lab: [facility] [address] [place] [facility] LIVER FUNCTION TESTS GAMMA GLUTAMYL TRANSFERASE [ENZYMATIC ACTIVITY/VO LUME] IN SERUM OR PLASMA 30 U/L <54 - 54 12/18 Specimen Type: PLASMA No comment entered. Ordering Provider: ODELL HYMAN Report Released Date/Time: Dec 18, 2023 10:41 PM Reporting Lab: [facility] [address] Performing Lab: [facility] [address] [place] [facility] LIVER FUNCTION TESTS BILIRUBIN.D IRECT [MASS/VOLUM E] IN SERUM OR PLASMA 0.7 mg/dL <0.5 - 0.5 12/18 H Specimen Type: PLASMA No comment entered. Ordering Provider: ODELL HYMAN Report Released Date/Time: Dec 18, 2023 10:41 PM Reporting Lab: [facility] [address] Performing Lab: [facility] [address] [place] [facility] LIPID PANEL,NON -FASTING CHOLESTEROL [MASS/VOLUM E] IN SERUM OR PLASMA 187 mg/dL <199 - 199 12/18 Specimen Type: PLASMA No comment entered. Ordering Provider: ODELL HYMAN Report Released Date/Time: Dec 18, 2023 10:41 PM Reporting Lab: [facility] [address] Performing Lab: [facility] [address] [place] [facility] LIPID PANEL,NON -FASTING CHOLESTEROL IN HDL [MASS/VOLUM E] IN SERUM OR PLASMA 71 mg/dL 40 12/18 Specimen Type: PLASMA No comment entered. Ordering Provider: ODELL HYMAN Report Released Date/Time: Dec 18, 2023 10:41 PM Reporting Lab: [facility] [address] Performing Lab: [facility] [address] [place] [facility] LIPID PANEL,NON -FASTING CHOLESTEROL IN LDL [MASS/VOLUM E] IN SERUM OR PLASMA BY CALCULATION 99 mg/dL <99 - 99 12/18 Specimen Type: PLASMA No comment entered. Ordering Provider: ODELL HYMAN Report Released Date/Time: Dec 18, 2023 10:41 PM Reporting Lab: [facility] [address] Performing Lab: [facility] [address] [place] [facility] LIPID PANEL,NON -FASTING CHOLESTEROL IN VLDL [MASS/VOLUM E] IN SERUM OR PLASMA BY CALCULATION 17 mg/dL <29 - 29 12/18 Specimen Type: PLASMA No comment entered. Ordering Provider: ODELL HYMAN Report Released Date/Time: Dec 18, 2023 10:41 PM Reporting Lab: [facility] [address] Performing Lab: [facility] [address] [place] [facility] LIPID PANEL,NON -FASTING CHOLESTEROL NON HDL [MASS/VOLUM E] IN SERUM OR PLASMA 116 mg/dL <129 - 129 12/18 Specimen Type: PLASMA No comment entered. Ordering Provider: ODELL HYMAN Report Released Date/Time: Dec 18, 2023 10:41 PM Reporting Lab: [facility] [address] Performing Lab: [facility] [address] [place] [facility] LIPID PANEL,NON -FASTING TRIGLYCERID E [MASS/VOLUM E] IN SERUM OR PLASMA 83 mg/dL <149 - 149 12/18 Specimen Type: PLASMA No comment entered. Ordering Provider: ODELL HYMAN Report Released Date/Time: Dec 18, 2023 10:41 PM Reporting Lab: [facility] [address] Performing Lab: [facility] [address] [place] [facility] BASIC METABOLIC PANEL+MG CREATININE [MASS/VOLUM E] IN SERUM OR PLASMA 0.7 mg/dL 0.7 - 1.2 12/18 Specimen Type: PLASMA No comment entered. Ordering Provider: ODELL HYMAN Report Released Date/Time: Dec 18, 2023 10:41 PM Reporting Lab: [facility] [address] Performing Lab: [facility] [address] [place] [facility] BASIC METABOLIC PANEL+MG UREA NITROGEN [MASS/VOLUM E] IN SERUM OR PLASMA 11 mg/dL 8 - 26 12/18 Specimen Type: PLASMA No comment entered. Ordering Provider: ODELL HYMAN Report Released Date/Time: Dec 18, 2023 10:41 PM Reporting Lab: [facility] [address] Performing Lab: [facility] [address] [place] [facility] BASIC METABOLIC PANEL+MG GLUCOSE [MASS/VOLUM E] IN SERUM OR PLASMA 101 mg/dL 70 - 100 12/18 H Specimen Type: PLASMA No comment entered. Ordering Provider: ODELL HYMAN Report Released Date/Time: Dec 18, 2023 10:41 PM Reporting Lab: [facility] [address] Performing Lab: [facility] [address] [place] [facility] BASIC METABOLIC PANEL+MG SODIUM [MOLES/VOLU ME] IN SERUM OR PLASMA 140 mmol/L 136 - 145 12/18 Specimen Type: PLASMA No comment entered. Ordering Provider: ODELL HYMAN Report Released Date/Time: Dec 18, 2023 10:41 PM Reporting Lab: [facility] [address] Performing Lab: [facility] [address] [place] [facility] BASIC METABOLIC PANEL+MG POTASSIUM [MOLES/VOLU ME] IN SERUM OR PLASMA 4.1 mmol/L 3.5 - 5.1 12/18 Specimen Type: PLASMA No comment entered. Ordering Provider: ODELL HYMAN Report Released Date/Time: Dec 18, 2023 10:41 PM Reporting Lab: [facility] [address] Performing Lab: [facility] [address] [place] [facility] BASIC METABOLIC PANEL+MG CHLORIDE [MOLES/VOLU ME] IN SERUM OR PLASMA 107 mmol/L 98 - 107 12/18 Specimen Type: PLASMA No comment entered. Ordering Provider: ODELL HYMAN Report Released Date/Time: Dec 18, 2023 10:41 PM Reporting Lab: [facility] [address] Performing Lab: [facility] [address] [place] [facility] BASIC METABOLIC PANEL+MG CARBON DIOXIDE, TOTAL [MOLES/VOLU ME] IN SERUM OR PLASMA 24 mmol/L 22 - 29 12/18 Specimen Type: PLASMA No comment entered. Ordering Provider: ODELL HYMAN Report Released Date/Time: Dec 18, 2023 10:41 PM Reporting Lab: [facility] [address] Performing Lab: [facility] [address] [place] [facility] BASIC METABOLIC PANEL+MG CALCIUM [MASS/VOLUM E] IN SERUM OR PLASMA 9.6 mg/dL 8.4 - 10.2 12/18 Specimen Type: PLASMA No comment entered. Ordering Provider: ODELL HYMAN Report Released Date/Time: Dec 18, 2023 10:41 PM Reporting Lab: [facility] [address] Performing Lab: [facility] [address] [place] [facility] BASIC METABOLIC PANEL+MG MAGNESIUM [MASS/VOLUM E] IN SERUM OR PLASMA 1.6 mg/dL 1.6 - 2.6 12/18 Specimen Type: PLASMA No comment entered. Ordering Provider: ODELL HYMAN Report Released Date/Time: Dec 18, 2023 10:41 PM Reporting Lab: [facility] [address] Performing Lab: [facility] [address] [place] [facility] BASIC METABOLIC PANEL+MG ANION GAP IN SERUM OR PLASMA 9 mmol/L 5 - 15 12/18 Specimen Type: PLASMA No comment entered. Ordering Provider: ODELL HYMAN Report Released Date/Time: Dec 18, 2023 10:41 PM Reporting Lab: [facility] [address] Performing Lab: [facility] [address] [place] [facility] BASIC METABOLIC PANEL+MG GLOMERULAR FILTRATION RATE/1.73 SQ M.PREDICTED [VOLUME RATE/AREA] IN SERUM, PLASMA OR BLOOD BY CREATININE- BASED FORMULA (CKD-EPI 2020) >90 60 12/18 Specimen Type: PLASMA No comment entered. Ordering Provider: ODELL HYMAN Report Released Date/Time: Dec 18, 2023 10:41 PM Reporting Lab: [facility] [address] Performing Lab: [facility] [address] [place] [facility] CBC & DIFF LEUKOCYTES [#/VOLUME] IN BLOOD BY AUTOMATED COUNT 7.53 10*3/u L 4.0 - 11.0 12/18 Specimen Type: BLOOD Comment: Automated Differentia l Performed Ordering Provider: ODELL HYMAN Report Released Date/Time: Dec 18, 2023 10:41 PM Reporting Lab: [facility] [address] Performing Lab: [facility] [address] [place] [facility] CBC & DIFF ERYTHROCYTE S [#/VOLUME] IN BLOOD BY AUTOMATED COUNT 4.69 10*6/u L 4.6 - 6.2 12/18 Specimen Type: BLOOD Comment: Automated Differentia l Performed Ordering Provider: ODELL HYMAN Report Released Date/Time: Dec 18, 2023 10:41 PM Reporting Lab: [facility] [address] Performing Lab: [facility] [address] [place] [facility] CBC & DIFF HEMOGLOBIN [MASS/VOLUM E] IN BLOOD 15.5 g/dL 13.5 - 17.9 12/18 Specimen Type: BLOOD Comment: Automated Differentia l Performed Ordering Provider: ODELL HYMAN Report Released Date/Time: Dec 18, 2023 10:41 PM Reporting Lab: [facility] [address] Performing Lab: [facility] [address] [place] [facility] CBC & DIFF HEMATOCRIT [VOLUME FRACTION] OF BLOOD BY AUTOMATED COUNT 45.1 41 - 54 12/18 Specimen Type: BLOOD Comment: Automated Differentia l Performed Ordering Provider: ODELL HYMAN Report Released Date/Time: Dec 18, 2023 10:41 PM Reporting Lab: [facility] [address] Performing Lab: [facility] [address] [place] [facility] CBC & DIFF MCV [ENTITIC VOLUME] BY AUTOMATED COUNT 96.2 fL 80 - 100 12/18 Specimen Type: BLOOD Comment: Automated Differentia l Performed Ordering Provider: ODELL HYMAN Report Released Date/Time: Dec 18, 2023 10:41 PM Reporting Lab: [facility] [address] Performing Lab: [facility] [address] [place] [facility] CBC & DIFF MCH [ENTITIC MASS] BY AUTOMATED COUNT 33.0 pg 27 - 33 12/18 Specimen Type: BLOOD Comment: Automated Differentia l Performed Ordering Provider: ODELL HYMAN Report Released Date/Time: Dec 18, 2023 10:41 PM Reporting Lab: [facility] [address] Performing Lab: [facility] [address] [place] [facility] CBC & DIFF MCHC [MASS/VOLUM E] BY AUTOMATED COUNT 34.4 g/dL 32.0 - 37.5 12/18 Specimen Type: BLOOD Comment: Automated Differentia l Performed Ordering Provider: ODELL HYMAN Report Released Date/Time: Dec 18, 2023 10:41 PM Reporting Lab: [facility] [address] Performing Lab: [facility] [address] [place] [facility] CBC & DIFF PLATELETS [#/VOLUME] IN BLOOD BY AUTOMATED COUNT 365 10*3/u L 150 - 400 12/18 Specimen Type: BLOOD Comment: Automated Differentia l Performed Ordering Provider: ODELL HYMAN Report Released Date/Time: Dec 18, 2023 10:41 PM Reporting Lab: [facility] [address] Performing Lab: [facility] [address] [place] [facility] CBC & DIFF PLATELET MEAN VOLUME [ENTITIC VOLUME] IN BLOOD BY AUTOMATED COUNT 8.6 fL 7.4 - 10.4 12/18 Specimen Type: BLOOD Comment: Automated Differentia l Performed Ordering Provider: ODELL HYMAN Report Released Date/Time: Dec 18, 2023 10:41 PM Reporting Lab: [facility] [address] Performing Lab: [facility] [address] [place] [facility] CBC & DIFF NEUTROPHILS /100 LEUKOCYTES IN BLOOD BY MANUAL COUNT 53.1 40.0 - 80.0 12/18 Specimen Type: BLOOD Comment: Automated Differentia l Performed Ordering Provider: ODELL HYMAN Report Released Date/Time: Dec 18, 2023 10:41 PM Reporting Lab: [facility] [address] Performing Lab: [facility] [address] [place] [facility] CBC & DIFF LYMPHOCYTES /100 LEUKOCYTES IN BLOOD BY MANUAL COUNT 24.6 15.0 - 45.0 12/18 Specimen Type: BLOOD Comment: Automated Differentia l Performed Ordering Provider: ODELL HYMAN Report Released Date/Time: Dec 18, 2023 10:41 PM Reporting Lab: [facility] [address] Performing Lab: [facility] [address] [place] [facility] CBC & DIFF MONOCYTES/1 00 LEUKOCYTES IN BLOOD BY AUTOMATED COUNT 16.7 2.0 - 12.0 12/18 H Specimen Type: BLOOD Comment: Automated Differentia l Performed Ordering Provider: ODELL HYMAN Report Released Date/Time: Dec 18, 2023 10:41 PM Reporting Lab: [facility] [id number] Performing Lab: [facility] [id number] [place] [facility] CBC & DIFF EOSINOPHILS /100 LEUKOCYTES IN BLOOD BY AUTOMATED COUNT 4.5 0.0 - 6.0 12/18 Specimen Type: BLOOD Comment: Automated Differentia l Performed Ordering Provider: ODELL HYMAN Report Released Date/Time: Dec 18, 2023 10:41 PM Reporting Lab: [facility] [id number] Performing Lab: [facility] [id number] [place] [facility] CBC & DIFF BASOPHILS/1 00 LEUKOCYTES IN BLOOD BY MANUAL COUNT 0.8 0.0 - 2.0 12/18 Specimen Type: BLOOD Comment: Automated Differentia l Performed Ordering Provider: ODELL HYMAN Report Released Date/Time: Dec 18, 2023 10:41 PM Reporting Lab: [facility] [id number] Performing Lab: [facility] [id number] [place] [facility] CBC & DIFF ERYTHROCYTE DISTRIBUTIO N WIDTH [RATIO] BY AUTOMATED COUNT 13.0 11.5 - 14.5 12/18 Specimen Type: BLOOD Comment: Automated Differentia l Performed Ordering Provider: ODELL HYMAN Report Released Date/Time: Dec 18, 2023 10:41 PM Reporting Lab: [facility] [address] Performing Lab: [facility] [address] [place] [facility] CBC & DIFF LYMPHOCYTES [#/VOLUME] IN BLOOD BY AUTOMATED COUNT 1.85 10*3/u L 1.0 - 4.0 12/18 Specimen Type: BLOOD Comment: Automated Differentia l Performed Ordering Provider: ODELL HYMAN Report Released Date/Time: Dec 18, 2023 10:41 PM Reporting Lab: [facility] [address] Performing Lab: [facility] [address] [place] [facility] CBC & DIFF MONOCYTES [#/VOLUME] IN BLOOD BY AUTOMATED COUNT 1.26 10*3/u L 0.1 - 1.0 12/18 H Specimen Type: BLOOD Comment: Automated Differentia l Performed Ordering Provider: ODELL HYMAN Report Released Date/Time: Dec 18, 2023 10:41 PM Reporting Lab: [facility] [address] Performing Lab: [facility] [address] [place] [facility] CBC & DIFF NEUTROPHILS [#/VOLUME] IN BLOOD BY AUTOMATED COUNT 4.00 10*3/u L 2.0 - 7.7 12/18 Specimen Type: BLOOD Comment: Automated Differentia l Performed Ordering Provider: ODELL HYMAN Report Released Date/Time: Dec 18, 2023 10:41 PM Reporting Lab: [facility] [address] Performing Lab: [facility] [address] [place] [facility] CBC & DIFF EOSINOPHILS [#/VOLUME] IN BLOOD BY AUTOMATED COUNT 0.34 10*3/u L 0 - 0.5 12/18 Specimen Type: BLOOD Comment: Automated Differentia l Performed Ordering Provider: ODELL HYMAN Report Released Date/Time: Dec 18, 2023 10:41 PM Reporting Lab: [facility] [address] Performing Lab: [facility] [address] [place] [facility] CBC & DIFF BASOPHILS [#/VOLUME] IN BLOOD BY AUTOMATED COUNT 0.06 10*3/u L 0 - 0.2 12/18 Specimen Type: BLOOD Comment: Automated Differentia l Performed Ordering Provider: ODELL HYMAN Report Released Date/Time: Dec 18, 2023 10:41 PM Reporting Lab: [facility] [address] Performing Lab: [facility] [address] [place] [facility] CBC & DIFF IG(META,MYE LO,PRO) 0.3 12/18 Specimen Type: BLOOD Comment: Automated Differentia l Performed Ordering Provider: ODELL HYMAN Report Released Date/Time: Dec 18, 2023 10:41 PM Reporting Lab: [facility] [address] Performing Lab: [facility] [address] [place] [facility] CBC & DIFF IMMATURE GRANULOCYTE S [PRESENCE] IN BLOOD BY AUTOMATED COUNT 0.02 10*3/u L 0 - 0.1 12/18 Specimen Type: BLOOD Comment: Automated Differentia l Performed Ordering Provider: ODELL HYMAN Report Released Date/Time: Dec 18, 2023 10:41 PM Reporting Lab: [facility] [address] Performing Lab: [facility] [address] [place] [facility] AST/SGOT ASPARTATE AMINOTRANSF ERASE [ENZYMATIC ACTIVITY/VO LUME] IN SERUM OR PLASMA 23 U/L 11/08 Specimen Type: PLASMA No comment entered. Ordering Provider: ODELL YHMAN Report Released Date/Time: Oct 19, 2021 10:39 AM Reporting Lab: [facility] [address] Performing Lab: [facility] [address] [place] [facility] ALT/SGPT ALANINE AMINOTRANSF ERASE [ENZYMATIC ACTIVITY/VO LUME] IN SERUM OR PLASMA 26 U/L 11/08 Specimen Type: PLASMA No comment entered. Ordering Provider: ODELL HYMAN Report Released Date/Time: Oct 19, 2021 10:39 AM Reporting Lab: [facility] [address] Performing Lab: [facility] [address] [place] [facility] LIPID PANEL,NON -FASTING CHOLESTEROL [MASS/VOLUM E] IN SERUM OR PLASMA 160 mg/dL 11/08 Specimen Type: PLASMA No comment entered. Ordering Provider: ODELL HYMAN Report Released Date/Time: Oct 19, 2021 10:39 AM Reporting Lab: [facility] [phone] Performing Lab: [facility] [address] [place] [facility] LIPID PANEL,NON -FASTING CHOLESTEROL IN HDL [MASS/VOLUM E] IN SERUM OR PLASMA 57 mg/dL 11/08 Specimen Type: PLASMA No comment entered. Ordering Provider: ODELL HYMAN Report Released Date/Time: Oct 19, 2021 10:39 AM Reporting Lab: [facility] [phone] Performing Lab: [facility] [address] [place] [facility] LIPID PANEL,NON -FASTING CHOLESTEROL IN LDL [MASS/VOLUM E] IN SERUM OR PLASMA BY CALCULATION 89 mg/dL 11/08 Specimen Type: PLASMA No comment entered. Ordering Provider: ODELL HYMAN Report Released Date/Time: Oct 19, 2021 10:39 AM Reporting Lab: [facility] [address] Performing Lab: [facility] [address] [place] [facility] LIPID PANEL,NON -FASTING CHOLESTEROL IN VLDL [MASS/VOLUM E] IN SERUM OR PLASMA BY CALCULATION 14 mg/dL 11/08 Specimen Type: PLASMA No comment entered. Ordering Provider: ODELL HYMAN Report Released Date/Time: Oct 19, 2021 10:39 AM Reporting Lab: [facility] [address] Performing Lab: [facility] [address] [place] [facility] LIPID PANEL,NON -FASTING CHOLESTEROL NON HDL [MASS/VOLUM E] IN SERUM OR PLASMA 103 mg/dL 11/08 Specimen Type: PLASMA No comment entered. Ordering Provider: ODELL HYMAN Report Released Date/Time: Oct 19, 2021 10:39 AM Reporting Lab: [facility] [address] Performing Lab: [facility] [address] [place] [facility] LIPID PANEL,NON -FASTING TRIGLYCERID E [MASS/VOLUM E] IN SERUM OR PLASMA 68 mg/dL 11/08 Specimen Type: PLASMA No comment entered. Ordering Provider: ODELL HYMAN Report Released Date/Time: Oct 19, 2021 10:39 AM Reporting Lab: [facility] [address] Performing Lab: [facility] [address] [place] [facility] Vital Signs Combined list of inpatient and outpatient Vital Signs from Department of Defense and Veterans Affairs, ranging from 12 months to all on record, depending upon the facility. Vital Sign Value Date Comments Source SYSTOLIC BLOOD PRESSURE 151 03/26/2024 09:54:05 [facility] DIASTOLIC BLOOD PRESSURE 78 03/26/2024 09:54:05 [facility] PULSE OXIMETRY 96 03/26/2024 09:54:05 [place] [facility] WEIGHT 146.4 03/26/2024 09:54:05 [facility] BMI 24kg/m2 03/26/2024 09:54:05 [facility] PAIN 0 03/26/2024 09:54:05 [facility] TEMPERATURE 97.5 03/26/2024 09:54:05 [place] [facility] PULSE 61 03/26/2024 09:54:05 [facility] RESPIRATION 16 03/26/2024 09:54:05 [facility] SYSTOLIC BLOOD PRESSURE 169 12/19/2023 08:40:13 [facility] DIASTOLIC BLOOD PRESSURE 80 12/19/2023 08:40:13 [facility] PULSE OXIMETRY 98 12/19/2023 08:40:[address] [facility] WEIGHT 146.9 12/19/2023 08:40:13 [facility] BMI 24kg/m2 12/19/2023 08:40:13 [facility] PAIN 0 12/19/2023 08:40:13 [facility] HEIGHT 65.5 12/19/2023 08:40:13 [facility] TEMPERATURE 97.6 12/19/2023 08:40:13 [facility] PULSE 81 12/19/2023 08:40:13 [facility] RESPIRATION 16 12/19/2023 08:40:13 [facility] Encounters Combined list of: 1) Encounters from [facility] facilities going back up to thelast 18 months. 2) Encounters from the Department of Defense facilities going back up to 280 months. Location Location Details Encounter Type Encounter Number Reason For Visit Attending Provider ADM Date DC Date Status Disposition Source [facility] Outpatient Encounter [id number] JAYDA ROSADO 12/27 [facility] Outpatient Encounter [id number] DEANDRE BARNETT 12/28 [facility] OFF/OP EST MAY X REQ PHY/QHP [id number] Diagnos is: ICD-10- CM H40.123 4 Low-ten sana glaucom a, bilater al, indeter minate stage<b r/> ESTRELLA RODRIGUEZ 03/22 [facility] OFFICE O/P EST LOW 20-29 MIN [id number] Diagnos is: ICD-10- CM H40.123 1 Low-ten sana glaucom a, bilater al, mild stage<b r/> DEVEN HEMPHILL A 03/22 [place] [facility] [place] [facility] [place] ADMIN [id number] Diagnos is: ICD-10- CM Z23 Encount er for immuniz ation<b r/> BRADEN MEDELANDZAIDA G 03/22 [place] [facility] [place] [facility] Outpatient Encounter [id number] MICK SAMAYOA 04/07 [place] [facility] [place] [facility] Outpatient Encounter [id number] 05/09 [place] [facility] [place] [facility] Outpatient Encounter [id number] 05/25 [place] [facility] [place] [facility] Outpatient Encounter [id number] 10/12 [facility] [place] [facility] Outpatient Encounter [id number] NALLELY MALIK 10/29 [facility] [place] [facility] Outpatient Encounter [id number] Diagnos is: ICD-10- CM S20.362 A Insect bite (nonven omous) of left front wall of thorax, init
ARASH VASQUEZ 10/29 [facility] [place] [facility] Outpatient Encounter [id number] 10/29 [place] [facility] [place] [facility] Outpatient Encounter [id number] NALLELY MALIK 10/29 [facility] [place] [facility] OFFICE O/P EST MOD 30 MIN [id number] Diagnos is: ICD-10- CM H40.003 Preglau coma, unspeci fied, bilater al
LAMINE ORTIZ 11/08 [place] [facility] [place] [facility] OFFICE O/P EST LOW 20 MIN [id number] Diagnos is: ICD-10- CM I10 Essenti al (primar y) hyperte nsion<b r/> HYMAN,ODELL H 12/18 [facility] [place] [facility] Outpatient Encounter [id number] 12/27 [facility] [place] [facility] Outpatient Encounter [id number] 01/29 [facility] ORTHOTIC MGMT&TRAIN G 1ST ENC [id number] Diagnos is: ICD-10- CM M21.372 Foot drop, left foot
MATILDE ALDANA 02/06 [facility] Outpatient Encounter [id number] 03/05 [facility] Outpatient Encounter [id number] 03/26 [facility] OFFICE O/P EST LOW 20 MIN [id number] Diagnos is: ICD-10- CM I10 Essenti al (primar y) hyperte nsion<b r/> HYMAN,[facility] 03/26 [facility] Outpatient Encounter [id number] 04/16 [facility] [place] [facility] Outpatient Encounter [id number] 04/22 [facility] ORTHC/PROS TC MGMT SBSQ ENC [id number] Diagnos is: ICD-10- CM M21.372 Foot drop, left foot
CRISTINA BUCKNER 04/22 [facility] [place] [facility] Outpatient Encounter [id number] MICK SAMAYOA 04/24 [facility] Social History Combined list of available smoking, tobacco, and other social history from Department of Defense and Veterans Affairs facilities. 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 Additional future care activities may be listed in the Assessment and Plan section. Date/Time Care Activity Care Activity Detail Facili ty 11/07/2024 AMBULATORY - SURGERY AMBULATORY - SURGERY [facility] 11/07/2024 AMBULATORY - SURGERY AMBULATORY - SURGERY [facility] Advance Directives List of completed, amended, or rescinded Advance Directives on record at [facility] facilities. An actual copy of the Directive is not included. Date Advance Directive Provider Source 03/24/2010 [facility] 12/07/2004 ADVANCE DIRECTIVE [facility]
--- OUTSIDE RECORDS SUMMARY | 2024-05-22 08:38 | XMS_ITS | Encounter Summary ---
Author Name [facility] [place] [facility] [place] [facility] [facility] [place] Address [address] [place] [address] Care Team Providers Care Reprint Sorter Name Role Phone YENNI ODELL Primary Care [...] PART A Apr 14, 2010 PART A [id number] Sissy GAMINO PATIENT MEDICARE (WNR) MEDICARE (M) PART B Apr 14, 2010 PART B [id number] Sissy GAMINO PATIENT Selected Encounter This section includes the information on record at [place] for the Encounter. Date/Time Encounter Type Encounter Description Reason Provider Source Mar 26, 2024 10:00 AM OFFICE O/P EST LOW 20 MIN PRIMARY CARE/MEDICINE ICD-10-CM I10 Essential (primary) hypertension ODELL HYMAN [place] Encounter Template Text not used by [place] Assessments - Encounter Diagnoses This section includes the primary and secondary diagnoses documented for the Encounter. Date/Time Primary/Secondary Diagnosis Diagnosis Name Provider Source Mar 26, 2024 10:39 AM PRIMARY Essential (primary) hypertension ODELL HYMAN [facility] Mar 26, 2024 10:39 AM SECONDARY Foot drop, left foot ODELL HYMAN [facility] Mar 26, 2024 10:39 AM SECONDARY Hyperlipidemia, unspecified ODELL HYMAN [facility] Plan of Treatment: Future Appointments (+ 6 months) and Future Tests (+/- 45 days) The Plan of Treatment section includes future care activities for the patient [facility] [place] [facility] This section includes future appointments and future orders which are active, pending or scheduled. Future Appointments This section includes appointments that were scheduled to occur 6 months from the date of the Encounter, up to a maximum of 20 appointments. The data comes from all [facility] facilities. Appointment Date/Time Appointment Type Appointme nt Facility Name Apr 22, 2024 10:45 AM AMBULATORY - NONE [facility] Apr 22, 2024 11:00 AM AMBULATORY - NONE [facility] May 05, 2024 07:00 AM AMBULATORY NONE [facility] Lab Results: +/- 30 days of the encounter This section includes the Chemistry and Hematology Lab Results on record with [place] for the patient. Radiology Reports and Pathology Reports are provided separately, in subsequent sections. Lab Results This section contains the Chemistry/Hematology Results that were resulted 30 days before or 30 daysafter the date of the Encounter. Date/Time Source Result Type Result - Unit Interpretation Reference Range Comment Mar 26, 2024 08:47 AM [facility] LIPID PANEL,NON-FASTING Specimen Type: PLASMA No comment entered. Ordering Provider: ODELL HYMAN Report Released Date/Time: Dec 19, 2023 09:45 AM Reporting Lab: [facility] [id number] Performing Lab: [facility] [id number] CHOLESTEROL 147 mg/dL <199 .HDL 64 mg/dL >40 LDL CALCULATION 68 mg/dL <99 VLDL CALCULATION 15 mg/dL <29 NON HDL CHOLESTEROL 83 mg/dL <129 TRIG(NON FASTING) 74 mg/dL <149 Mar 26, 2024 08:47 AM [facility] LIVER FUNCTION TESTS Specimen Type: PLASMA No comment entered. Ordering Provider: ODELL HYMAN Report Released Date/Time: Dec 19, 2023 09:45 AM Reporting Lab: [facility] [id number] Performing Lab: [facility] [id number] BILIRUBIN, TOTAL 1.7 mg/dL H 0.2-1.2 ALKALINE PHOSPHATASE 101 U/L 40-150 ALT/SGPT 28 U/L <44 AST/SGOT 35 U/L H 11-34 GAMMA GTP 21 U/L <54 DIR. BILIRUBIN 0.6 mg/dL H <0.5 Vital Signs: All taken on the encounter date This section contains inpatient and outpatient Vital Signs collected on the date of the Encounter. Date/Time Temperature Pulse Blood Pressure Respiratory Rate SP02 Pain Height Weight Body Mass Index Source Mar 26, 2024 10:29 AM 130/80 [facility] Mar 26, 2024 09:58 AM 141/81 [facility] Mar 26, 2024 09:54 AM 97.5 61 151/78 16 96 0 146.4 24 [facility] Social History: Smoking Status (Most current) and Tobacco Use (All prior to encounter date) This section includes the most current, and the historical, smoking and tobacco- related health factors from the [place] facility where the Encounter took place. Current Smoking Status This section includes the most current smoking, or tobacco-related health factor, from the [place] facility where the Encounter took place. Date/Time Current Smoking Status Comment Shaheed jauregui Dec 19, 2023 09:00 AM [place]-TOBACCO NEVER USED [facility] Tobacco Use History This section includes a history of the smoking, or tobacco-related health factors, that were collected on or before the date of the Encounter. The data comes from the [place] facility where the Encounter took place. Date/Time Smoking Status/Tobacco Use Comment F acraquel Nov 08, 2022 08:00 AM [place]-TOBACCO NEVER USED [facility] Oct 19, 2021 10:00 AM VA-TOBACCO NEVER USED [facility] October 01, 2018 11:22 AM VA-TOBACCO NEVER USED [facility] Jul 31, 2017 12:37 PM LIFETIME NON-TOBACCO USER [facility] Aug 10, 2016 07:51 AM LIFETIME NON-TOBACCO USER [facility] Jul 21, 2015 07:47 AM LIFETIME NON-TOBACCO USER [facility] October 07, 2014 11:04 AM LIFETIME NON-TOBACCO USER [facility] October 04, 2013 09:48 AM LIFETIME NON-TOBACCO USER [facility] Advance Directives: All historical and current Section Date Range: From patient's date of to the date document was created. This section includes ALL of a patient's completed or amended [place] Advance and Rescinded Directives. The entries below indicate that a directive exists for the patient, but an actual copy is not included with this document. The data comes from all [place] facilities. Date Advance Directives Provider Source Mar 24, 2010 CLINICAL WARNING [facility] IS [facility] Dec 07, 2004 ADVANCE DIRECTIVE UMMLISA MAXIMO LIS [facility] Radiology Reports: +/- 30 days of the encounter Radiology Reports For cases when an order for radiology services may have been completed prior to the date of the Encounter, the report list includes the Radiology Reports that were completed up to 30 days before dateof the Encounter. For cases when an order for radiology services may have been completed after the date of the Encounter, the report list also includes the Radiology Reports that were completed up to30 days after date of the Encounter. The data comes from all [place] treatment facilities. Date/Time Radiology Report Provider Source Mar 26, 2024 07:33 AM US CAROTID (BILATE RAL) (P): SHANKAR GAMINO [id number] -[id number] M Exm Date: MAR 26, 2024@07:33 Req Phys: ODELL HYMAN Pat Loc: [facility] PACT IVORY 4E (Req'g Loc) Img Loc: Ultrasound Imaging Service: [place] [address] (Case [id number] COMPLETE) US CAROTID BILATERAL (US Detailed) CPT:29362 Reason for Study: see below Clinical History: H/o carotid stenosis seen at [facility] CTA neck, please eval Responsible provider name and phone number to notify for critical findings if other than user placing the order and pager listed below: User placing orders pager: [phone] LAST CREATININE 0.7 (12/19/23) Report Status: Verified Date Reported: MAR 26, 2024 Date Verified: MAR 26, 2024 Manager Of Warehouse E-Sig:/ES/PETE SCHUSTER MD Report: Bilateral Carotid Artery Duplex Ultrasound History: Reason for Study: see below H/o carotid stenosis seen at [facility] CTA neck, please eval Responsible provider name and phone number to notify for critical findings if other than user placing the order and pager listed below: User placing orders pager: [phone] LAST CREATININE 0.7 (12/19/23) Comparison Study: None. Findings: Right side: Plaque: Mild plaque is present at the carotid bifurcation. The lumen of the internal carotid artery was adequately visualized. Proximal CCA: 100 / 15 cm/sec Distal CCA: 77 / 17 cm/sec Carotid bifurcation: 53 / 14 cm/sec External CA: 100 / 15 cm/sec Proximal ICA: 59 / 17 cm/sec Mid ICA: 74 / 19 cm/sec Distal ICA: 37 / 11 cm/sec Vertebral Artery: antegrade Innominate artery: 101 cm/sec Subclavian artery: 165 cm/sec ICA/CCA ratio: 0.96 Left side: Plaque: Mild plaque is present at the carotid bifurcation. The lumen of the internal carotid artery was adequately visualized. Proximal CCA: 73 / 14 cm/sec Distal CCA: 67 / 15 cm/sec Carotid bifurcation: 58 / 15 cm/sec External CA: 100 / 14 cm/sec Proximal ICA: 135 / 36,36 cm/sec Mid ICA: 133 / 26 cm/sec Distal ICA: 107 / 23 cm/sec Vertebral Artery: antegrade Subclavian artery: 77 cm/sec ICA/CCA ratio: 2.02 Impression: 1. Right: Doppler velocity criteria correlate with a less than 50% stenosis of the internal carotid artery. 2. Left: Doppler velocity criteria correlate with a less than 50% stenosis of the internal carotid artery. THE REPORT OF THE PATIENT'S FINDINGS ENDS HERE. Please note that as of March 04, [address] [facility] Non-invasive V[facility] Lab has adopted the carotid artery stenosis Duplex criteria endorsed by Intersocietal Accreditation Commission(IAC). The changes in criteria may explain differences in the degree of stenosis when compared with prior exams. IPETE, have reviewed the images and report. Primary Interpreting Staff: PETE SCHUSTER MD, RADIOLOGIST (Manager Of Warehouse) Primary Interpreting Resident: MARY JANE BREEN, , IRON MINER BLASTING /PETE JACINTO [facility] Encounter Notes: All associated encounter notes This section contains the clinical notes associated to the Encounter. Date/Time Encounter Note(s) Provider Source Mar 26, 2024 10:40 AM LETTERS: LOCAL TITLE: FOLLOW UP RESULTS LETTER STANDARD TITLE: LETTERS DATE OF NOTE: MAR 26, 2024@10:40 ENTRY DATE: MAR 26, 2024@10:40:14 AUTHOR: ODELL HYMAN EXP COSIGNER: URGENCY: STATUS: COMPLETED [facility] [place] [address] Mar SHANKAR GAMINO [address] [facility] [address] Dear [place]: I am writing to inform you of the results of the tests you had done at the [facility]. The tests below were performed and are satisfactory unless otherwise noted. - Cholesterol Tests (HDL = good and LDL = bad) CHOLESTEROL 147 (03/26/24) (prefer less than 200) HDL 64 (03/26/24) (prefer more than 39) LDL CALCULATION 68 (03/26/24) (prefer less than 70) TRIGLYCERIDE (prefer less than 150) . - Liver function Tests AST/SGOT 35 H (03/26/24) (normal 5-34) ALT/SGPT 28 (03/26/24) (normal </= 55) ALK PHOSPHATASE 101 (03/26/24) (normal 40-150) Collection DT Specimen Test Name Result Units Ref Range 03/26/2024 08:47 PLASMA GAMMA GTP 21 U/L Ref: <=54 BILIRUBIN, TOTAL 1.7 H (03/26/24) (normal 0.3-1.2) Report Status: Verified Date Reported: MAR 26, 2024 D Report: Bilateral Carotid Artery Duplex Ultrasound History: Reason for Study: see below H/o carotid stenosis seen at [facility] CT[facility] neck, please eval Responsible provider name and phone number to notify for critical findings if other than user placing the order and pager listed below: User placing orders pager: [phone] LAST CREATININE 0.7 (12/19/23) Comparison Study: None. Impression: 1. Right: Doppler velocity criteria correlate with a less than 50% stenosis of the internal carotid artery. 2. Left: Doppler velocity criteria correlate with a less than 50% stenosis of the internal carotid artery. Comments: - Your liver tests are stable. Please reduce alcohol use. - Your carotid ulrasound does not show any significant narrowing. It is relatively common to see less than 50% narrowing on both sides for a person at your age. It is the lowest grading on the reference range. There is no further workup or intervention needed other than keeping your cholesterol under good control. - See you back in 9 months for routine follow up with lab. If you have any further questions or problems, please contact our nursing staff or me at the following number: [phone]. Sincerely, ODELL HYMAN MD Staff Physician ODELL HYMAN [facility] Mar 26, 2024 10:16 AM INTERNAL MEDICINE NOTE: LOCAL TITLE: MEDICINE CLINIC NOTE STANDARD TITLE: INTERNAL MEDICINE NOTE DATE OF NOTE: MAR 26, 2024@10:16 ENTRY DATE: MAR 25, 2024@10:22:23 AUTHOR: ODELL HYMAN EXP COSIGNER: URGENCY: STATUS: COMPLETED Nurses notes reviewed and agree. This note is an edited version based on my previous clinic visit notes and/or based on review of [facility] records. Chief complaint: f/u. Last seen in 12/2023 HPI: The patient is a 78 year old MALE h/o HTN, chronic left foot drop on AFO, carotid stenosis presenting here for f/u - doing stable - pt has BP machine at home- BP at home ok--128-130/79-80. Had coffee this AM. Stated that his BP is always higher in clinic - on cream for psoriasis, he will call in when he needs refill - walks almost 6 miles daily weather permitting. Started deer hunting season, so he walks alot. Review of Systems: No nasal congestion/drainage/sore throat. No CP/palpitations/PND/Orthopnea. No cough/sputum/SOB. No dysuria/hematuria. No abdominal pain/N/V/D. FH: - cancer: none - DM: none - ASCVD: father of [place] at age 59, sister and brother of heart problem at age 40s SH: , passed way from [facility] in 06/2015, 6 children. Retired but still [...] symptoms, treated conservatively, discharged from neurosurgery clinic /2010 - CT Spine Cervical w/o-12/27/2022 [facility] No acute fracture or traumatic subluxation. Moderate [...] foot 17. Exposure to potentially hazardous substance ([facility] [id number]) - Entered through [facility] [place] Documentation Initiative 18. Carotid stenosis - CT ANGIOGRAM NECK 12/27/2022 at [facility] Moderate (60%) stenosis at the origin of the left internal carotid artery by NASCET criteria caused by non- calcified plaque with a 1.5mm residual lumen. Mild left vertebral artery origin stenosis. 19. MAJANO - CT HEAD 12/27/2022 [facility] CLINICAL HISTORY: Patient with headache. No intracranial hemorrhage or territorial infarction. Mild microangiopathic changes and diffuse parenchymal volume loss. Allergies: Patient has answered NKA Active and Recently Outpatient Medications (including Supplies): Active Outpatient Medications Status 1) AMLODIPINE BESYLATE 10MG TAB TAKE ONE TABLET BY MOUTH ACTIVE EVERY DAY 2) ROSUVASTATIN CA 20MG TAB TAKE ONE TABLET BY MOUTH ACTIVE EVERY DAY FOR CHOLESTEROL Inactive Outpatient Medications Status 1) DOXYCYCLINE HYCLATE 100MG TAB TAKE ONE TABLET BY MOUTH TWICE A DAY 3 Total Medications OTC, Herbals, and Private MD medications or additional medication information: Physical Exams: Gloves are used when examining patient Vitals: Blood Pressure: 151/78 (03/26/2024 09:54) recheck bp 141/81. Pulse: 61 (03/26/2024 09:54) Respiration: 16 (03/26/2024 09:54) Temperature: 97.5 F [36.4 C] (03/26/2024 09:54) Weight: 146.4 lb [66.41 kg] (03/26/2024 09:54) Height: 65.5 in [166.4 cm] (12/19/2023 08:40) BMI: 24.0 O2 Sat: 96% (03/26/2024 09:54) Pain: 0 (03/26/2024 09:54) Gen: AAO, nad, pt appears at his [...] Lab Report. No data available Lipids: CHOLESTEROL 147 (03/26/24) HDL 64 (03/26/24) LDL CALCULATION 68 (03/26/24) LDL Measured: TRIGLYCERIDE____ LFTs: SGOT 35 H (03/26/24) SGPT 28 (03/26/24) PSA - NONE FOUND TSH ____ URIC ACID____ Urine Microalbumin: ALB/CREAT RATIO____ Other Lab Data: EKG: Imaging: Report Status: Verified Date Reported: MAR 26, 2024 D Report: Bilateral Carotid Artery Duplex Ultrasound History: Reason for Study: see below H/o carotid stenosis seen at [facility] CTA neck, please eval Responsible provider name and phone number to notify for critical findings if other than user placing the order and pager listed below: User placing orders pager: [phone] LAST CREATININE 0.7 (12/19/23) Comparison Study: None. Impression: 1. Right: Doppler velocity criteria correlate with a less than 50% stenosis of the internal carotid artery. 2. Left: Doppler velocity criteria correlate with a less than 50% stenosis of the internal carotid artery. Assessment/Plan: 1. HTN: HCTZ/lisinopril was not effective and d/alfonso by ED in 08/20. BP good control at home, higher in clinic. Pt had coffee this AM. - continue amlodipine 10mg - pt to continue to monitor BP at home, goal <140/90 and will call clinic if BP is elevated. Consider HCTZ/Triamterene 2. Hyperlipidemia: Goal LDL<70 due to carotid stenosis. Chol good control 03/26/24 (total 147, HDL 64, LDL 68, TG 74), LFTs nl 03/2024 - Continue rosuvastatin 20mg 3. Carotid stenosis: carotid us today <50% stenosis bilateral - continue statin and clinical followup 4. HCM: - colonoscopy: Flex sig 01/2011 Perianal [...] Pt has never used tobacco products. RTC 9 months with lab BMP, CBC, A1c More than 50% of this 25 min visit spent in counselling and coordinating care regarding reviewing labs, medications, discussing medical issues mentioned above and answering patient's questions. (x) Patient/Caregiver indicates readiness to learn, verbalizes understanding, agreement and satisfaction with the treatment plan. (x) /Caregiver indicates readiness to learn and has been instructed on action, dose, frequency, and side effects of the medication. [place]/Caregiver verbalizes understanding. HTN Assess for Elevated BP>=140/90: Repeat blood pressure: 130/80 Medication Reconciliation: Education Evaluations *Was medication education provided for NEW medications or CHANGES to medications? (including medication name, dose, route, reason for use, and potential side effects). No new medications or medication changes during this encounter. TERATOGENIC MED & CONTRACEPTION REVIEW (Optional)... MEDICATION RECONCILIATION Active and Recently Outpatient Medications (including Supplies): Issue Date Status Last Fill Active Outpatient Medications Refills Expiration 1) AMLODIPINE BESYLATE 10MG TAB Qty: 90 ACTIVE Issu:12-19-23 for 90 days Sig: TAKE ONE TABLET BY Refills: 3 Last:12-19-23 MOUTH EVERY DAY Expr:12-19-24 2) ROSUVASTATIN CA 20MG TAB Qty: 90 for 90 ACTIVE Issu:12-19-23 days Sig: TAKE ONE TABLET BY MOUTH Refills: 3 Last:12-19-23 EVERY DAY FOR CHOLESTEROL Expr:12-19-24 Issue Date Status Last Fill Inactive Outpatient Medications Refills Expiration 1) DOXYCYCLINE HYCLATE 100MG TAB Qty: 20 Issu:10-30-23 for 10 days Sig: TAKE ONE TABLET BY Refills: 0 Last:10-30-23 MOUTH TWICE A DAY Expr:11-29-23 3 Total Medications /es/ ODELL HYMAN MD Staff Physician Signed: 03/26/2024 10:39 ODELL HYMAN [facility] Mar 26, 2024 09:55 AM INTERNAL MEDICINE OUTPATIENT NOTE: LOCAL TITLE: MEDICINE CLINIC NURSING NOTE STANDARD TITLE: INTERNAL MEDICINE OUTPATIENT NOTE DATE OF NOTE: MAR 26, 2024@09:55 ENTRY DATE: MAR 26, 2024@09:55:58 AUTHOR: MIK KAUR EXP COSIGNER: URGENCY: STATUS: COMPLETED TYPE OF VISIT: Appointment Check In Type of appointment: In-person appointment REASON FOR VISIT: Follow up ALLERGIES: Patient has answered NKA VITAL SIGNS: Blood Pressure: 151/78 (03/26/2024 09:54) recheck bp 141/81. Pulse: 61 (03/26/2024 09:54) Respiration: 16 (03/26/2024 09:54) Temperature: 97.5 F [36.4 C] (03/26/2024 09:54) Weight: 146.4 lb [66.41 kg] (03/26/2024 09:54) Height: 65.5 in [166.4 cm] (12/19/2023 08:40) BMI: 24.0 O2 Sat: 96% (03/26/2024 09:54) Pain: 0 (03/26/2024 09:54) PAIN SCREEN: Patient is not having significant pain that they wish to discuss with their provider today. COVID-19 Immunization: Refused Pfizer Monovalent COVID-19 vaccine Immunization: COVID-19 (PFIZER), MRNA, LNP-S, PF, LATESHA-SUCROSE, 30 MCG/0.3 ML (AGES 12+ YEARS) Refusal Reason: PATIENT DECISION Patient refuses all immunization(s) in the COVID-19 group Date Documented: 03/26/24 09:56 Influenza Immunization: Deferral / Refusal The patient declines to receive the recommended dose of seasonal influenza vaccine. Immunization: INFLUENZA, UNSPECIFIED FORMULATION Refusal Reason: PATIENT DECISION Patient refuses all immunization(s) in the FLU group Date Documented: 03/26/24 09:57 /es/ MIK KAUR LPN, LPN Signed: 03/26/2024 09:58 MIK KAUR [facility]
--- OUTSIDE RECORDS SUMMARY | 2024-05-22 08:38 | XMS_ITS | Encounter Summary ---
Author Name [facility] ([place]) Organization [facility] ([place]) Address [address] [place] [address] Care Team Providers Care Honey Processor Name Role Phone ODELL HYMAN Primary Care [...] PART A Apr 14, 2010 PART A [id number] [phone] Sissy GAMINO PATIENT MEDICARE (WNR) MEDICARE (M) PART B Apr 14, 2010 PART B [id number] 50A [phone] Sissy GAMINO PATIENT Selected Encounter This section includes the information on record at [place] for the Encounter. Date/Time Encounter Type Encounter Description Reason Pro vider Source Dec 28, 2023 01:13 PM Outpatient Encounter GENERAL INTERNAL MEDICINE IHE Encounter Template Text not used by [place] Plan of Treatment: Future Appointments (+ 6 months) and Future Tests (+/- 45 days) The Plan of Treatment section includes future care activities for the patient from all [place] treatmentfacilities. This section includes future appointments and future orders which are active, pending or scheduled. Future Appointments This section includes appointments that were scheduled to occur 6 months from the date of the Encounter, up to a maximum of 20 appointments. The data comes from all [place] treatment facilities. Appointment Date/Time Appointment Type Appointme nt Facility Name Feb 07, 2024 11:00 AM AM[place]ORY [place]ONE [place] [facility] [facility] Mar 26, 2024 08:00 AM AM[place]ORY - [place] [facility] Mar 26, 2024 09:15 AM [place]ORY - NONE [place] [facility] Mar 26, 2024 10:00 AM AMBULATORY - MEDICINE [facility] [facility] Apr 22, 2024 10:45 AM AMB[place]ORY - NONE [place] [facility] Apr 22, 2024 11:00 AM AM[place]ORY - NONE [place] [facility] May 05, 2024 07:00 AM AM[place]ORY - NONE [place] [facility] [facility] Lab Results: +/- 30 days of the encounter This section includes the Chemistry and Hematology Lab Results on record with [place] for the patient. Radiology Reports and Pathology Reports are provided separately, in subsequent sections. Lab Results This section contains the Chemistry/Hematology Results that were resulted 30 days before or 30 daysafter the date of the Encounter. Date/Time Source Result Type Result - Unit Interpretation Reference Range Comment Dec 19, 2023 07:04 AM [facility] HEMOGLOBIN A1C Specimen Type: BLOOD Comment: Values [...] Dec 18, 2023 10:41 PM Reporting Lab: [facility] [id number] Performing Lab: [facility] [address] HEMOGLOBIN A1C 4.8 4.0-6.0 Dec 19, 2023 07:04 AM [facility] LIVER FUNCTION TESTS Specimen Type: PLASMA No comment entered. Ordering Provider: ODELL HYMAN Report Released Date/Time: Dec 18, 2023 10:41 PM Reporting Lab: [facility] [id number] Performing Lab: [facility] [address] BILIRUBIN, TOTAL 2.6 mg/dL H 0.2-1.2 ALKALINE PHOSPHATASE 118 U/L 40-150 ALT/SGPT 40 U/L <44 AST/SGOT 47 U/L H 11-34 GAMMA GTP 30 U/L <54 DIR. BILIRUBIN 0.7 mg/dL H <0.5 Dec 19, 2023 07:04 AM [facility] LIPID PANEL,NON-FASTING Specimen Type: PLASMA No comment entered. Ordering Provider: ODELL HYMAN Report Released Date/Time: Dec 18, 2023 10:41 PM Reporting Lab: [facility] [id number] Performing Lab: [facility] [address] CHOLESTEROL 187 mg/dL <199 .HDL 71 mg/dL >40 LDL CALCULATION 99 mg/dL <99 VLDL CALCULATION 17 mg/dL <29 NON HDL CHOLESTEROL 116 mg/dL <129 TRIG(NON FASTING) 83 mg/dL <149 Dec 19, 2023 07:04 AM [facility] BASIC METABOLIC PANEL+MG Specimen Type: PLASMA No comment entered. Ordering Provider: ODELL HYMAN Report Released Date/Time: Dec 18, 2023 10:41 PM Reporting Lab: [facility] [address] Performing Lab: [facility] [address] CREATININE 0.7 mg/dL 0.7-1.2 UREA NITROGEN 11 mg/dL 8-26 GLUCOSE 101 mg/dL H 70-100 SODIUM 140 mmol/L 136-145 POTASSIUM 4.1 mmol/L 3.5-5.1 CHLORIDE 107 mmol/L 98-107 CO2 24 mmol/L 22-29 CALCIUM 9.6 mg/dL 8.4-10.2 MAGNESIUM 1.6 mg/dL 1.6-2.6 ANION GAP 9 mmol/L 5-15 .CREAT EGFR(CKD-EPI) >90 >60 Dec 19, 2023 07:04 AM [facility] CBC & DIFF Specimen Type: BLOOD Comment: Automated Differential Performed Ordering Provider: ODELL HYMAN Report Released Date/Time: Dec 18, 2023 10:41 PM Reporting Lab: [facility] [address] Performing Lab: [facility] [address] WBC 7.53 10*3/uL 4.0-11.0 RBC 4.69 10*6/uL [...] 0.3 ABS IMMATURE GRAN 0.02 10*3/uL 0-0.1 Social History: Smoking Status (Most current) and Tobacco Use (All prior to encounter date) This section includes the most current, and the historical, smoking and tobacco- related health factors from the [place] facility where the Encounter took place. Current Smoking Status This section includes the most current smoking, or tobacco-related health factor, from the [place] facility where the Encounter took place. Date/Time Current Smoking Status Comment Shaheed jauregui Dec 19, 2023 09:00 AM VA-TOBACCO NEVER USED [facility] Tobacco Use History This section includes a history of the smoking, or tobacco-related health factors, that were collected on or before the date of the Encounter. The data comes from the [place] facility where the Encounter took place. Date/Time Smoking Status/Tobacco Use Comment F acility Nov 08, 2022 08:00 AM VA-TOBACCO NEVER USED [facility] Oct 19, 2021 10:00 AM VA-TOBACCO NEVER USED [facility] October 01, 2018 11:22 AM VA-TOBACCO NEVER USED [facility] Jul 31, 2017 12:37 PM LIFETIME NON-TOBACCO USER [facility] Aug 10, 2016 07:51 AM LIFETIME NON-TOBACCO USER [facility] Jul 21, 2015 07:47 AM LIFETIME NON-TOBACCO USER [facility] October 07, 2014 11:04 AM LIFETIME NON-TOBACCO USER [facility] October 04, 2013 09:48 AM LIFETIME NON-TOBACCO USER [facility] Advance Directives: All historical and current Section Date Range: From patient's date of to the date document was created. This section includes ALL of a patient's completed or amended [place] Advance and Rescinded Directives. The entries below indicate that a directive exists for the patient, but an actual copy is not included with this document. The data comes from all [place] facilities. Date Advance Directives Provider Source Mar 24, 2010 CLINICAL WARNING [facility] IS [facility] Dec 07, 2004 ADVANCE DIRECTIVE LISA SALOMON [facility] Encounter Notes: All associated encounter notes This section contains the clinical notes associated to the Encounter. Date/Time Encounter Note(s) Provider Source Dec 28, 2023 01:13 PM PRIMARY CARE CONSU LT: LOCAL TITLE: [facility] CONSULT STANDARD TITLE: PRIMARY CARE CONSULT DATE OF NOTE: DEC 28, 2023@13:13 ENTRY DATE: DEC 28, 2023@13:13:16 AUTHOR: OCTAVIA PONCE EXP COSIGNER: URGENCY: STATUS: COMPLETED Patient enrolled in [facility]. Registered Health Nurse spoke to sushila in [employer] [phone], they have been updated to bring patient to [facility] 1D-100. Flag activated. Schedule all appointments BETWEEN [phone]. Call [facility] after appointments [phone]. /javad/ OCTAVIA PONCE LPN LPN Signed: 12/28/2023 13:14 OCTAVIA PONCE [facility]
--- OUTSIDE RECORDS SUMMARY | 2024-05-22 08:38 | XMS_ITS | Encounter Summary ---
Author Name [facility] [place] Organization [facility] [facility] [place] Address [address] [place] [address] Care Team Providers Care Well Driller Helper Name Role Phone ODELL HYMAN Primary Care [...] PART A Apr 14, 2010 PART A [id number] 50A [phone] Sissy GAMINO PATIENT MEDICARE (WNR) MEDICARE (M) PART B Apr 14, 2010 PART B [id number] 50A [phone] Sissy GAMINO PATIENT Selected Encounter This section includes the information on record at [place] for the Encounter. Date/Time Encounter Type Encounter Description Reason Provider Source Feb 07, 2024 11:00 AM ORTHOTIC MGMT&TRAING 1ST ENC PROSTHETICS/ORTHOT ICS ICD-10-CM M21.372 Foot drop, left foot PETE ALDANA Mansoor Encounter Template Text not used by [place] Assessments - Encounter Diagnoses This section includes the primary and secondary diagnoses documented for the Encounter. Date/Time Primary/Secondary Diagnosis Diagnosis Name Provider Source Feb 14, 2024 02:24 PM PRIMARY Foot drop, left foot PETE ALDANA [facility] Plan of Treatment: Future Appointments (+ 6 months) and Future Tests (+/- 45 days) The Plan of Treatment section includes future care activities for the patient [facility] [place] [facility] This section includes future appointments and future orders which are active, pending or scheduled. Future Appointments This section includes appointments that were scheduled to occur 6 months from the date of the Encounter, up to a maximum of 20 appointments. The data comes from all [place] treatment facilities. Appointment Date/Time Appointment Type Appointme nt Facility Name Mar 26, 2024 08:00 AM [facility] [place] [facility] Mar 26, 2024 09:15 AM [facility] [place] [facility] Mar 26, 2024 10:00 AM AMBULATORY - MEDICINE [facility] [facility] Apr 22, 2024 10:45 [facility] Apr 22, 2024 11:00 AM [facility] [place] [facility] May 05, 2024 07:00 AM [facility] Social History: Smoking Status (Most current) and Tobacco Use (All prior to encounter date) This section includes the most current, and the historical, smoking and tobacco- related health factors from the [place] facility where the Encounter took place. Current Smoking Status This section includes the most current smoking, or tobacco-related health factor, from the [place] facility where the Encounter took place. Date/Time Current Smoking Status Comment Shaheed jauregui Dec 19, 2023 09:00 AM VA-TOBACCO NEVER USED [facility] Tobacco Use History This section includes a history of the smoking, or tobacco-related health factors, that were collected on or before the date of the Encounter. The data comes from the [place] facility where the Encounter took place. Date/Time Smoking Status/Tobacco Use Comment F acility Nov 08, 2022 08:00 AM VA-TOBACCO NEVER USED [facility] Oct 19, 2021 10:00 AM VA-TOBACCO NEVER USED [facility] October 01, 2018 11:22 AM VA-TOBACCO NEVER USED [facility] Jul 31, 2017 12:37 PM LIFETIME NON-TOBACCO USER [facility] Aug 10, 2016 07:51 AM LIFETIME NON-TOBACCO USER [facility] Jul 21, 2015 07:47 AM LIFETIME NON-TOBACCO USER [facility] October 07, 2014 11:04 AM LIFETIME NON-TOBACCO USER [facility] October 04, 2013 09:48 AM LIFETIME NON-TOBACCO USER [facility] Advance Directives: All historical and current Section Date Range: From patient's date of to the date document was created. This section includes ALL of a patient's completed or amended [place] Advance and Rescinded Directives. The entries below indicate that a directive exists for the patient, but an actual copy is not included with this document. The data comes from all [place] facilities. Date Advance Directives Provider Source Mar 24, 2010 CLINICAL WARNING [facility] Chrissy ZIMMERMANJACE IS [facility] Dec 07, 2004 ADVANCE DIRECTIVE UMMLISA LIS [facility] Encounter Notes: All associated encounter notes This section contains the clinical notes associated to the Encounter. Date/Time Encounter Note(s) Provider Source Feb 07, 2024 11:04 AM ORTHOTICS PROSTHET ICS CONSULT: LOCAL TITLE: PROSTHETICS CONSULT STANDARD TITLE: ORTHOTICS PROSTHETICS CONSULT DATE OF NOTE: FEB 07, 2024@11:04 ENTRY DATE: FEB 07, 2024@11:05:09 AUTHOR: PETE ALDANA EXP COSIGNER: URGENCY: STATUS: COMPLETED Provisional Diagnosis: Foot Drop, left Foot(ICD-10-CM M21.372) Reason For Request: Brace Outpatient Please provide left AFO for left foot drop. He did not get it last time but prosthetic consult was completed. Saw patient in Prosthetics for evaluation. The patient received an ASO in 2021 that was not adequate. A new AFO consult was placed in 2022. The consult was closed and the patient never received the AFO. The patient ambulates with a steppage gait. Despite deficits the patient walks 6 miles a day. [place]. The patient reports that he developed foot drop 20 or so years ago as a result of a chain saw injury which injured a tendon. Author discussed various options with patient including the carbon fiber AFO's as well as the Turbomed. The patient wishes to trial both options and decide after trialng. Author will contact referring provider to request that shoes be added to the consult. Author is currently utilizing Rocha shoes. Author will order shoes to utilize with the AFO. Author performed MMT and ROM testing. The patienht pronates on weight bearing. Hammer Toes, bilaterally. All muscle groups are WNL except ankle dorsiflexors which are 0/5. The patient wears a size 10.5 Rocha Shoe. EDUCATION: Education was provided to patient during this encounter. Patient indicated readiness to learn about educational information re: the following topics: donning/doffing, wash/care instructions, how to report a concern. Additional education training is not indicated. Patient indicates readiness to learn, verbalizes understanding, agreement and satisfaction with the treatment plan. Patient denies further questions. Patient to be scheduled for return to clinic on receipt of shoes & foot orthotics. Please create PO and order from [facility]: *spoke to referring provider L3221 x 4 2 pair of EDS Rocha Adrenaline GTS 24 Size: 10.5 Regular L1951 x 1 Economy Step Flex AFO Lobato Medium [id number] Please create PO and order from [employer]: --------- L1951 x 1 Turbo Med X-tern Amite Medium [id number] XTERN SEMI-ASSEMBLED FOOT DROP ORTHOTIC *When shoes come in. Take one pair, left and have Xtern mounted to left shoe *Set RTC when shoes come in /javad/ PETE ALDANA SENIOR [employer] NET DEVELOPER/CENTER MAKER HAND Signed: 02/14/2024 14:24 PETE ALDANA [facility]
--- OUTSIDE RECORDS SUMMARY | 2024-05-22 08:39 | XMS_ITS | Encounter Summary ---
Author Name Department of [facility] ([place]) Organization Department of [facility] ([place]) Address [address] [place] [address] Care Team Providers Care Mail Caller Name Role Phone ODELL HYMAN Primary Care [...] PART A Apr 14, 2010 PART A [id number] 50A [phone] Sissy GAMINO PATIENT MEDICARE (WNR) MEDICARE (M) PART B Apr 14, 2010 PART B [id number] 50A [phone] Sissy GAMINO PATIENT Selected Encounter This section includes the information on record at [place] for the Encounter. Date/Time Encounter Type Encounter Description Reason Pro vider Source Apr 16, 2024 12:03 PM Outpatient Encounter GENERAL INTERNAL MEDICINE IHE Encounter Template Text not used by [place] Plan of Treatment: Future Appointments (+ 6 months) and Future Tests (+/- 45 days) The Plan of Treatment section includes future care activities for the patient from all [place] treatmentfacilities. This section includes future appointments and future orders which are active, pending or scheduled. Future Appointments This section includes appointments that were scheduled to occur 6 months from the date of the Encounter, up to a maximum of 20 appointments. The data comes from all [place] treatment facilities. Appointment Date/Time Appointment Type Appointme nt Facility Name Apr 22, 2024 10:45 AM AMBULATORY - NONE [facility] Apr 22, 2024 11:00 AM AMBULATORY - NONE [facility] May 05, 2024 07:00 AM AMBULATORY - NONE [facility] Lab Results: +/- 30 days of the encounter This section includes the Chemistry and Hematology Lab Results on record with [place] for the patient. Radiology Reports and Pathology Reports are provided separately, in subsequent sections. Lab Results This section contains the Chemistry/Hematology Results that were resulted 30 days before or 30 daysafter the date of the Encounter. Date/Time Source Result Type Result - Unit Interpretation Reference Range Comment Mar 26, 2024 08:[address] [facility] LIPID PANEL,NON-FASTING Specimen Type: PLASMA No comment entered. Ordering Provider: ODELL HYMAN Report Released Date/Time: Dec 19, 2023 09:45 AM Reporting Lab: [facility] [address] Performing Lab: [facility] [address] CHOLESTEROL 147 mg/dL <199 .HDL 64 mg/dL >40 LDL CALCULATION 68 mg/dL <99 VLDL CALCULATION 15 mg/dL <29 NON HDL CHOLESTEROL 83 mg/dL <129 TRIG(NON FASTING) 74 mg/dL <149 Mar 26, 2024 08:[address] [facility] LIVER FUNCTION TESTS Specimen Type: PLASMA No comment entered. Ordering Provider: ODELL HYMAN Report Released Date/Time: Dec 19, 2023 09:45 AM Reporting Lab: [facility] [id number] Performing Lab: [facility] [address] BILIRUBIN, TOTAL 1.7 mg/dL H 0.2-1.2 ALKALINE PHOSPHATASE 101 U/L 40-150 ALT/SGPT 28 U/L <44 AST/SGOT 35 U/L H 11-34 GAMMA GTP 21 U/L <54 DIR. BILIRUBIN 0.6 mg/dL H <0.5 Social History: Smoking Status (Most current) and Tobacco Use (All prior to encounter date) This section includes the most current, and the historical, smoking and tobacco- related health factors from the [facility] where the Encounter took place. Current Smoking Status This section includes the most current smoking, or tobacco-related health factor, from the [facility] where the Encounter took place. Date/Time Current Smoking Status Comment Sahheed jauregui Dec 19, 2023 09:00 AM [place]-TOBACCO NEVER USED [facility] Tobacco Use History This section includes a history of the smoking, or tobacco-related health factors, that were collected on or before the date of the Encounter. The data comes from the [place] facility where the Encounter took place. Date/Time Smoking Status/Tobacco Use Comment F acility Nov 08, 2022 08:00 AM [place]-TOBACCO NEVER USED [facility] Oct 19, 2021 10:00 AM VA-TOBACCO NEVER USED [facility] October 01, 2018 11:22 AM VA-TOBACCO NEVER USED [facility] Jul 31, 2017 12:37 PM LIFETIME NON-TOBACCO USER [facility] Aug 10, 2016 07:51 AM LIFETIME NON-TOBACCO USER [facility] Jul 21, 2015 07:47 AM LIFETIME NON-TOBACCO USER [facility] October 07, 2014 11:04 AM LIFETIME NON-TOBACCO USER [facility] October 04, 2013 09:48 AM LIFETIME NON-TOBACCO USER [facility] Advance Directives: All historical and current Section Date Range: From patient's date of to the date document was created. This section includes ALL of a patient's completed or amended [place] Advance and Rescinded Directives. The entries below indicate that a directive exists for the patient, but an actual copy is not included with this document. The data comes from all [facility]. Date Advance Directives Provider Source Mar 24, 2010 CLINICAL WARNING [facility] IS [facility] Dec 07, 2004 ADVANCE DIRECTIVE LISA SALOMON [facility] Radiology Reports: +/- 30 days of the [...] the Encounter. The data comes from all [place] treatment facilities. Date/Time Radiology Report Provider Source Mar 26, 2024 07:33 AM US CAROTID (BILATE RAL) (P): STEVENSONSHANKAR MORENO [id number] -[phone] M Exm Date: MAR 26, 2024@07:33 Req Phys: ODELL HYMAN Pat Loc: [facility] PACT IVORY 4E (Req'g Loc) Img Loc: Ultrasound Imaging Service: [place] [address] (Case [id number] COMPLETE) US CAROTID BILATERAL (US Detailed) CPT:26793 Reason for Study: see below Clinical History: H/o carotid stenosis seen at [facility] CTA neck, please eval Responsible provider name and phone number to notify for critical findings if other than user placing the order and pager listed below: User placing orders pager: [phone] LAST CREATININE 0.7 (12/19/23) Report Status: Verified Date Reported: MAR 26, 2024 Date Verified: MAR 26, 2024 Chemical Production Engineer E-Sig:/ES/PETE SCHUSTER MD Report: Bilateral Carotid Artery Duplex Ultrasound History: Reason for Study: see below H/o carotid stenosis seen at [facility] CTA neck, please eval Responsible provider name and phone number to notify for critical findings if other than user placing the order and pager listed below: User placing orders pager: [phone] LAST CREATININE 0.7 (12/19/23) Comparison Study: None. [...] as of March 04, [address] [facility] Non-invasive Vascular Lab has adopted the carotid artery stenosis Duplex criteria endorsed by Intersocietal Accreditation Commission(IAC). The changes in criteria may explain differences in the degree of stenosis when compared with prior exams. I, PETE SCHUSTER, have reviewed the images and report. Primary Interpreting Staff: PETE SCHUSTER MD, RADIOLOGIST (Chemical Production Engineer) Primary Interpreting Resident: MARY JANE BREEN, , SECURITY ALARM INSTALLER /PETE JACINTO [facility] Encounter Notes: All associated encounter notes This section contains the clinical notes associated to the Encounter. Date/Time Encounter Note(s) Provider Source Apr 16, 2024 12:03 PM PATIENT RECORD FLA G: LOCAL TITLE: CLIENT ASSISTIVE SERVICES NOTE STANDARD TITLE: PATIENT RECORD FLAG DATE OF NOTE: APR 16, 2024@12:03 ENTRY DATE: APR 16, 2024@12:03:45 AUTHOR: OCTAVIA MIKE EXP COSIGNER: URGENCY: STATUS: COMPLETED CLIENT ASSISTIVE SERVICES Extension [phone] Patient called stated he did not need BONIFACIO assistance,and would like consult cancelled. /javad/ OCTAVIA MIKE LPN Signed: 04/16/2024 12:[address] [facility]
--- OUTSIDE RECORDS SUMMARY | 2024-05-22 08:39 | XMS_ITS | Encounter Summary ---
Author Name [facility] [place] [facility] [place] Organization [facility] [place] Address [address] [place] [address] Care Team Providers Care Lead Architect Name Role Phone ODELL HYMAN Primary Care [...] PART A Apr 14, 2010 PART A [id number] [phone] Sissy GAMINO PATIENT MEDICARE (WNR) MEDICARE (M) PART B Apr 14, 2010 PART B [id number] 50A [phone] Sissy GAMINO PATIENT Selected Encounter This section includes the information on record at [place] for the Encounter. Date/Time Encounter Type Encounter Description Reason Pro vider Source Apr 22, 2024 10:52 AM Outpatient Encounter EVENT (HISTORICAL) IHE Encounter Template Text not used by [place] Plan of Treatment: Future Appointments (+ 6 months) and Future Tests (+/- 45 days) The Plan of Treatment section includes future care activities for the patient from all [place] treatmentfacilities. This section includes future appointments and future orders which are active, pending or scheduled. Future Appointments This section includes appointments that were scheduled to occur 6 months from the date of the Encounter, up to a maximum of 20 appointments. The data comes from all [place] treatment facilities. Appointment Date/Time Appointment Type Appointme nt Facility Name May 05, 2024 07:00 AM AMBULATORY - NONE [facility] Lab Results: +/- 30 days of the encounter This section includes the Chemistry and Hematology Lab Results on record with [place] for the patient. Radiology Reports and Pathology Reports are provided separately, in subsequent sections. Lab Results This section contains the Chemistry/Hematology Results that were resulted 30 days before or 30 daysafter the date of the Encounter. Date/Time Source Result Type Result - Unit Interpretation Reference Range Comment Mar 26, 2024 08:47 AM [facility] LIPID PANEL,NON-FASTING Specimen Type: PLASMA No comment entered. Ordering Provider: ODELL HYMAN Report Released Date/Time: Dec 19, 2023 09:45 AM Reporting Lab: [facility] [id number] Performing Lab: [facility] [address] CHOLESTEROL 147 mg/dL <199 .HDL 64 mg/dL >40 LDL CALCULATION 68 mg/dL <99 VLDL CALCULATION 15 mg/dL <29 NON HDL CHOLESTEROL 83 mg/dL <129 TRIG(NON FASTING) 74 mg/dL <149 Mar 26, 2024 08:47 AM [facility] LIVER FUNCTION TESTS Specimen Type: PLASMA No comment entered. Ordering Provider: ODELL HYMAN Report Released Date/Time: Dec 19, 2023 09:45 AM Reporting Lab: [facility] [address] Performing Lab: [facility] [address] BILIRUBIN, TOTAL 1.7 mg/dL H 0.2-1.2 ALKALINE PHOSPHATASE 101 U/L 40-150 ALT/SGPT 28 U/L <44 AST/SGOT 35 U/L H 11-34 GAMMA GTP 21 U/L <54 DIR. BILIRUBIN 0.6 mg/dL H <0.5 Social History: Smoking Status (Most current) and Tobacco Use (All prior to encounter date) This section includes the most current, and the historical, smoking and tobacco- related health factors from the [place] facility where the Encounter took place. Current Smoking Status This section includes the most current smoking, or tobacco-related health factor, from the [place] facility where the Encounter took place. Date/Time Current Smoking Status Comment Shaheed jauregui Dec 19, 2023 09:00 AM [place]-TOBACCO NEVER USED [facility] Tobacco Use History This section includes a history of the smoking, or tobacco-related health factors, that were collected on or before the date of the Encounter. The data comes from the [place] facility where the Encounter took place. Date/Time Smoking Status/Tobacco Use Comment F acility Nov 08, 2022 08:00 AM [place]-TOBACCO NEVER USED [facility] Oct 19, 2021 10:00 AM [place]-TOBACCO NEVER USED [facility] October 01, 2018 11:22 AM [place]-TOBACCO NEVER USED [facility] Jul 31, 2017 12:37 PM LIFETIME NON-TOBACCO USER [facility] Aug 10, 2016 07:51 AM LIFETIME NON-TOBACCO USER [facility] Jul 21, 2015 07:47 AM LIFETIME NON-TOBACCO USER [facility] October 07, 2014 11:04 AM LIFETIME NON-TOBACCO USER [facility] October 04, 2013 09:48 AM LIFETIME NON-TOBACCO USER [facility] Advance Directives: All historical and current Section Date Range: From patient's date of to the date document was created. This section includes ALL of a patient's completed or amended [place] Advance and Rescinded Directives. The entries below indicate that a directive exists for the patient, but an actual copy is not included with this document. The data comes from all [facility]. Date Advance Directives Provider Source Mar 24, 2010 CLINICAL WARNING [facility] Dec 07, 2004 ADVANCE DIRECT[address] LISA SALOMON [facility] Radiology Reports: +/- 30 days of the [...] the Encounter. The data comes from all [place] treatment facilities. Date/Time Radiology Report Provider Source Mar 26, 2024 07:33 AM US CAROTID (BILATE RAL) (P): SHANKAR GAMINO [id number] -1945 M Exm Date: MAR 26, 2024@07:33 Req Phys: ODELL HYMAN Pat Loc: [facility] PACT IVORY 4E (Req'g Loc) Img Loc: Ultrasound Imaging Service: [place] [address] (Case 211 COMPLETE) US CAROTID BILATERAL (US Detailed) CPT:70970 Reason for Study: see below Clinical History: H/o carotid stenosis seen at [facility] CTA neck, please eval Responsible provider name and phone number to notify for critical findings if other than user placing the order and pager listed below: User placing orders pager: [phone] LAST CREATININE 0.7 (12/19/23) Report Status: Verified Date Reported: MAR 26, 2024 Date Verified: MAR 26, 2024 Flat Folding Machine Operator E-Sig:/ES/PETE SCHUSTER MD Report: Bilateral Carotid Artery Duplex Ultrasound History: Reason for Study: see below H/o carotid stenosis seen at [facility] CTA neck, please eval Responsible provider name and phone number to notify for critical findings if other than user placing the order and pager listed below: User placing orders pager: [phone] LAST CREATININE 0.7 (12/19/23) Comparison Study: None. [...] that as of March 04, 2022 the [facility] Non-invasive Vascular Lab has adopted the carotid artery stenosis Duplex criteria endorsed by Intersocietal Accreditation Commission(IAC). The changes in criteria may explain differences in the degree of stenosis when compared with prior exams. I, PETE SCHUSTER, have reviewed the images and report. Primary Interpreting Staff: PETE SCHUSTER MD, RADIOLOGIST (Flat Folding Machine Operator) Primary Interpreting Resident: MARY JANE BREEN, , CHILD CARE TEAM LEAD /PETE JACINTO [facility]
--- OUTSIDE RECORDS SUMMARY | 2024-05-22 08:39 | XMS_ITS | Encounter Summary ---
Author Name [facility] of [facility] [place] Organization Department of [facility] ([place]) Address [address] [place] [address] Care Team Providers Care Manager Name Role Phone ODELL HYMAN Primary Care [...] PART A Apr 14, 2010 PART A [id number] 50A [phone] Sissy GAMINO PATIENT MEDICARE (WNR) MEDICARE (M) PART B Apr 14, 2010 PART B [id number] 50A [phone] Sissy GAMINO PATIENT Selected Encounter This section includes the information on record at [place] for the Encounter. Date/Time Encounter Type Encounter Description Reason Pro vider Source Mar 26, 2024 09:51 AM Outpatient Encounter GENERAL INTERNAL MEDICINE IHE Encounter Template Text not used by [place] Plan of Treatment: Future Appointments (+ 6 months) and Future Tests (+/- 45 days) The Plan of Treatment section includes future care activities for the patient from all [place] treatmentfacilities. This section includes future appointments and future orders which are active, pending or scheduled. Future Appointments This section includes appointments that were scheduled to occur 6 months from the date of the Encounter, up to a maximum of 20 appointments. The data comes from all [place] treatment facilities. Appointment Date/Time Appointment Type Appointme nt Facility Name Apr 22, 2024 10:45 AM [facility] Apr 22, 2024 11:00 AM [facility] May 05, 2024 07:00 AM AMBULATORY - NONE [facility] Lab Results: +/- 30 days of the encounter This section includes the Chemistry and Hematology Lab Results on record with [place] for the patient. Radiology Reports and Pathology Reports are provided separately, in subsequent sections. Lab Results This section contains the Chemistry/Hematology Results that were resulted 30 days before or 30 daysafter the date of the Encounter. Date/Time Source Result Type Result - Unit Interpretation Reference Range Comment Mar 26, 2024 08:47 AM [facility] LIPID PANEL,NON-FASTING Specimen Type: PLASMA No comment entered. Ordering Provider: ODELL HYMAN Report Released Date/Time: Dec 19, 2023 09:45 AM Reporting Lab: [facility] [address] Performing Lab: [facility] [address] CHOLESTEROL 147 mg/dL <199 .HDL 64 mg/dL >40 LDL CALCULATION 68 mg/dL <99 VLDL CALCULATION 15 mg/dL <29 NON HDL CHOLESTEROL 83 mg/dL <129 TRIG(NON FASTING) 74 mg/dL <149 Mar 26, 2024 08:47 AM [facility] LIVER FUNCTION TESTS Specimen Type: PLASMA No comment entered. Ordering Provider: ODELL HYMAN Report Released Date/Time: Dec 19, 2023 09:45 AM Reporting Lab: [facility] [address] Performing Lab: [facility] [address] BILIRUBIN, TOTAL 1.7 mg/dL H 0.2-1.2 ALKALINE [...] Source Mar 26, 2024 10:29 AM 130/[facility] Mar 26, 2024 09:58 AM 141/81 [facility] Mar 26, 2024 09:54 AM 97.5 61 151/78 16 96 0 146.4 24 [facility] Social History: Smoking Status (Most current) and Tobacco Use (All prior to encounter date) This section includes the most current, and the historical, smoking and tobacco- related health factors from the [place] facility where the Encounter took place. Current Smoking Status This section includes the most current smoking, or tobacco-related health factor, from the [place] facility where the Encounter took place. Date/Time Current Smoking Status Comment Facil ity Dec 19, 2023 09:00 AM [place]-TOBACCO NEVER USED [facility] Tobacco Use History This section includes a history of the smoking, or tobacco-related health factors, that were collected on or before the date of the Encounter. The data comes from the [place] facility where the Encounter took place. Date/Time Smoking Status/Tobacco Use Comment F acility Nov 08, 2022 08:00 AM [place]-TOBACCO NEVER USED [facility] Oct 19, 2021 10:00 AM [place]-TOBACCO NEVER USED [facility] October 01, 2018 11:22 AM [place]-TOBACCO NEVER USED [facility] Jul 31, 2017 12:37 PM LIFETIME NON-TOBACCO USER [facility] Aug 10, 2016 07:51 AM LIFETIME NON-TOBACCO USER [facility] Jul 21, 2015 07:47 AM LIFETIME NON-TOBACCO USER [facility] October 07, 2014 11:04 AM LIFETIME NON-TOBACCO USER [facility] October 04, 2013 09:48 AM LIFETIME NON-TOBACCO USER [facility] Advance Directives: All historical and current Section Date Range: From patient's date of to the date document was created. This section includes ALL of a patient's completed or amended [place] Advance and Rescinded Directives. The entries below indicate that a directive exists for the patient, but an actual copy is not included with this document. The data comes from all [facility]. Date Advance Directives Provider Source Mar 24, 2010 CLINICAL WARNING [facility] Dec 07, 2004 ADVANCE DIRECTIVE LISA SALOMON [facility] Radiology Reports: +/- 30 days [...] the Encounter. The data comes from all [place] treatment facilities. Date/Time Radiology Report Provider Source Mar 26, 2024 07:33 AM US CAROTID (BILATE RAL) (P): SHANKAR GAMINO [id number] -1945 M Exm Date: MAR 26, 2024@07:33 Req Phys: ODLEL HYMAN Pat Loc: [facility] PACT IVORY 4E (Req'g Loc) Img Loc: Ultrasound Imaging Service: [place] [address] (Case 211 COMPLETE) US CAROTID BILATERAL (US Detailed) CPT:80572 Reason for Study: see below Clinical History: H/o carotid stenosis seen at [facility] CTA neck, please eval Responsible provider name and phone number to notify for critical findings if other than user placing the order and pager listed below: User placing orders pager: [phone] LAST CREATININE 0.7 (12/19/23) Report Status: Verified Date Reported: MAR 26, 2024 Date Verified: MAR 26, 2024 Animal Science Professor E-Sig:/ES/PETE SCHUSTER MD Report: Bilateral Carotid Artery Duplex Ultrasound History: Reason for Study: see below H/o carotid stenosis seen at [facility] CTA neck, please eval Responsible provider name and phone number to notify for critical findings if other than user placing the order and pager listed below: User placing orders pager: [phone] LAST CREATININE 0.7 (12/19/23) Comparison Study: None. [...] that as of March 04, 2022 the [facility] Non-invasive Vascular Lab has adopted the carotid artery stenosis Duplex criteria endorsed by Intersocietal Accreditation Commission(IAC). The changes in criteria may explain differences in the degree of stenosis when compared with prior exams. I, PETE SCHUSTER, have reviewed the images and report. Primary Interpreting Staff: PETE SCHUSTER MD, RADIOLOGIST (Animal Science Professor) Primary Interpreting Resident: MARY JANE BREEN , OPERATING ROOM ASSISTANT /PETE JACINTO [facility] Encounter Notes: All associated encounter notes This section contains the clinical notes associated to the Encounter. Date/Time Encounter Note(s) Provider Source Mar 26, 2024 09:51 AM PATIENT RECORD FLA G: LOCAL TITLE: CLIENT ASSISTIVE SERVICES NOTE STANDARD TITLE: PATIENT RECORD FLAG DATE OF NOTE: MAR 26, 2024@09:51 ENTRY DATE: MAR 26, 2024@09:51:25 AUTHOR: OCTAVIA MIKE EXP COSIGNER: URGENCY: STATUS: COMPLETED CLIENT ASSISTIVE SERVICES [phone] did not present to [facility] prior to appointment. /javad/ OCTAVIA MIKE LPN Signed: 03/26/2024 09:51 OCTAVIA MIKE [facility]
--- OUTSIDE RECORDS SUMMARY | 2024-05-22 08:39 | XMS_ITS | Encounter Summary ---
Author Name [facility] [place] Organization [facility] [place] Address [address] [place] [address] Care Team Providers Care Silviculture Professor Name Role Phone ODELL HYMAN Primary Care [...] PART A Apr 14, 2010 PART A [id number] 50A [phone] Sissy GAMINO PATIENT MEDICARE (WNR) MEDICARE ([place]) PART B Apr 14, 2010 PART B [id number] 50A [phone] Sissy GAMINO PATIENT Selected Encounter This section includes the information on record at [place] for the Encounter. Date/Time Encounter Type Encounter Description Reason Provider Source Apr 22, 2024 11:00 AM ORTHC/PROSTC MGMT SBSQ ENC PROSTHETICS/ORTHOT ICS ICD-10-CM M21.372 Foot drop, left foot CRISTINA BUCKNER [place] Encounter Template Text not used by [place] Assessments - Encounter Diagnoses This section includes the primary and secondary diagnoses documented for the Encounter. Date/Time Primary/Secondary Diagnosis Diagnosis Name Provider Source Apr 22, 2024 11:32 AM PRIMARY Foot drop, left foot CRISTINA BUCKNER [facility] Plan of Treatment: Future Appointments (+ 6 months) and Future Tests (+/- 45 days) The Plan of Treatment section includes future care activities for the patient from all [place] [facility]. This section includes future appointments and future orders which are active, pending or scheduled. Future Appointments This section includes appointments that were scheduled to occur 6 months from the date of the Encounter, up to a maximum of 20 appointments. The data comes from all [place] treatment facilities. Appointment Date/Time Appointment Type Appointme nt Facility Name May 05, 2024 07:00 AM AMBULATORY - NONE [facility] Lab Results: +/- 30 days of the [...] Dec 19, 2023 09:45 AM Reporting Lab: [facility] [phone] Performing Lab: [facility] [address] CHOLESTEROL 147 mg/dL <199 .HDL 64 mg/dL >40 LDL CALCULATION 68 mg/dL <99 VLDL CALCULATION 15 mg/dL <29 NON HDL CHOLESTEROL 83 mg/dL <129 TRIG(NON FASTING) 74 mg/dL <149 Mar 26, 2024 08:47 AM [facility] LIVER FUNCTION TESTS Specimen Type: PLASMA No comment entered. Ordering Provider: ODELL HYMAN Report Released Date/Time: Dec 19, 2023 09:45 AM Reporting Lab: [facility] [address] Performing Lab: [facility] [address] BILIRUBIN, TOTAL 1.7 mg/dL H 0.2-1.2 ALKALINE [...] place. Date/Time Current Smoking Status Comment Shaheed ity Dec 19, 2023 09:00 AM [place]-TOBACCO NEVER USED [facility] Tobacco Use History This section includes a history of the smoking, or tobacco-related health factors, that were collected on or before the date of the Encounter. The data comes from the [facility] where the Encounter took place. Date/Time Smoking Status/Tobacco Use Comment F acility Nov 08, 2022 08:00 AM [place]-TOBACCO NEVER USED [facility] Oct 19, 2021 10:00 AM [place]-TOBACCO NEVER USED [facility] October 01, 2018 11:22 AM [place]-TOBACCO NEVER USED [facility] Jul 31, [...] document. The data comes from all [facility]. Date Advance Directives Provider Source Mar 24, 2010 CLINICAL WARNING [facility] IS [facility] Dec 07, 2004 ADVANCE DIRECTIVE LISA SALOMON [facility] Radiology Reports: +/- 30 days of [...] the Encounter. The data comes from all [place] treatment facilities. Date/Time Radiology Report Provider Source Mar 26, 2024 07:33 AM US CAROTID (BILATE RAL) (P): SHANKAR GAMINO [id number] -1945 M Exm Date: MAR 26, 2024@07:33 Req Phys: ODELL HYMAN Pat Loc: [facility] PACT IVELIZABETH 4E (Req'g Loc) Img Loc: Ultrasound Imaging Service: [place] [address] (Case 211 COMPLETE) US CAROTID BILATERAL (US Detailed) CPT:82714 Reason for Study: see below Clinical History: H/o carotid stenosis seen at [facility] CTA neck, please eval Responsible provider name and phone number to notify for critical findings if other than user placing the order and pager listed below: User placing orders pager: [phone] LAST CREATININE 0.7 (12/19/23) Report Status: Verified Date Reported: MAR 26, 2024 Date Verified: MAR 26, 2024 Research Associate Professor E-Sig:/ES/PETE SCHUSTER MD Report: Bilateral Carotid Artery Duplex Ultrasound History: Reason for Study: see below H/o carotid stenosis seen at [facility] CTA neck, please eval Responsible provider name and phone number to notify for critical findings if other than user placing the order and pager listed below: User placing orders pager: [phone] LAST CREATININE 0.7 (12/19/23) Comparison Study: None. [...] that as of March 04, 2022 the [facility] Non-invasive Vascular Lab has adopted the carotid artery stenosis Duplex criteria endorsed by Intersocietal Accreditation Commission(IAC). The changes in criteria may explain differences in the degree of stenosis when compared with prior exams. I, PETE SCHUSTER, have reviewed the images and report. Primary Interpreting Staff: PETE SCHUSTER MD, RADIOLOGIST (Research Associate Professor) Primary Interpreting Resident: MARY JANE BREEN, , SHOE SHINER /[facility] Encounter Notes: All associated encounter notes This section contains the clinical notes associated to the Encounter. Date/Time Encounter Note(s) Provider Source Apr 22, 2024 11:29 AM ORTHOTICS PROSTHET ICS CONSULT: LOCAL TITLE: PROSTHETICS CONSULT STANDARD TITLE: ORTHOTICS PROSTHETICS CONSULT DATE OF NOTE: APR 22, 2024@11:29 ENTRY DATE: APR 22, 2024@11:29:47 AUTHOR: CRISTINA BUCKNER COSIGNER: URGENCY: STATUS: COMPLETED Patient was seen for delivery of Non-Custom Ankle Foot orthosis. Vet seen today for fitting and delivery of left Large Sprystep Flex AFO. Fit brace on patient, brace is comfortable and accepted for delivery. Side: Left Patient was fitted Skin Assessment: No skin issues Sensation: Normal Issued to :-(1) Left Large Sprystep Flex [facility]: [id number] GOALS: -Improve ambulation - provide dorsiflexion assistance of left foot -protection of affected limb -Restrict ankle motion -maintain proper foot position PATIENT EDUCATION: Written instructions given. Function, Care, Use, Maintenance and Precautions explained, pt/caregiver indicated he/she/they understood. Vet educated on skin inspection Items inspected for structural integrity Follow up: By referring physician upon delivery Eligible for AFO as medically necessary In one year or by patient request in prosthetics. Provisional Diagnosis: Foot Drop, left Foot(ICD-10-CM M21.372) /javad/ CRISTINA BUCKNER Chief Dietitian Diamond Finishing Supervisor Signed: 04/22/2024 11:32 CRISTINA BUCKNER [facility]
--- OUTSIDE RECORDS SUMMARY | 2024-05-22 08:39 | XMS_ITS | Encounter Summary ---
Author Name [facility] Organization [facility] Address [address] [place] [address] Care Team Providers Care Cost Control Supervisor Name Role Phone ODELL HYMAN Primary Care [...] PART A Apr 14, 2010 PART A [id number] [phone] Sissy SMITH PATIENT MEDICARE (WNR) MEDICARE (M) PART B Apr 14, 2010 PART B [id number] [phone] Sissy SMITH PATIENT Selected Encounter This section includes the information on record at [place] for the Encounter. Date/Time Encounter Type Encounter Description Reason Provider Source Apr 24, 2024 03:24 PM Outpatient Encounter COMMUNITY CARE CONSULT NOEMY CUEVAS Mans[place] Encounter Template Text not used by [place] Plan of Treatment: Future Appointments (+ 6 months) and Future Tests (+/- 45 days) The Plan of Treatment section includes future care activities for the patient from all [place] treatmentfacilities. This section includes future appointments and future orders which are active, pending or scheduled. Future Appointments This section includes appointments that were scheduled to occur 6 months from the date of the Encounter, up to a maximum of 20 appointments. The data comes from all [place] treatment facilities. Appointment Date/Time Appointment Type Appointme nt Facility Name May 05, 2024 07:00 AM AMBULATORY - NONE [place] [facility] Lab Results: +/- 30 days of the encounter This section includes the Chemistry and Hematology Lab Results on record with [place] for the patient. Radiology Reports and Pathology Reports are provided separately, in subsequent sections. Lab Results This section contains the Chemistry/Hematology Results that were resulted 30 days before or 30 daysafter the date of the Encounter. Date/Time Source Result Type Result - Unit Interpretation Reference Range Comment Mar 26, 2024 08:47 AM [facility] LIPID PANEL,NON-FASTING Specimen Type: PLASMA No comment entered. Ordering Provider: ODELL HYMAN Report Released Date/Time: Dec 19, 2023 09:45 AM Reporting Lab: [facility] [id number] Performing Lab: [facility] [id number] CHOLESTEROL 147 mg/dL <199 .HDL 64 mg/dL >40 LDL CALCULATION 68 mg/dL <99 VLDL CALCULATION 15 mg/dL <29 NON HDL CHOLESTEROL 83 mg/dL <129 TRIG(NON FASTING) 74 mg/dL <149 Mar 26, 2024 08:47 AM [facility] LIVER FUNCTION TESTS Specimen Type: PLASMA No comment entered. Ordering Provider: ODELL HYMAN Report Released Date/Time: Dec 19, 2023 09:45 AM Reporting Lab: [facility] [id number] Performing Lab: [facility] [id number] BILIRUBIN, TOTAL 1.7 mg/dL H 0.2-1.2 ALKALINE PHOSPHATASE 101 U/L 40-150 ALT/SGPT 28 U/L <44 AST/SGOT 35 U/L H 11-34 GAMMA GTP 21 U/L <54 DIR. BILIRUBIN 0.6 mg/dL H <0.5 Social History: Smoking Status (Most current) and Tobacco Use (All prior to encounter date) This section includes the most current, and the historical, smoking and tobacco- related health factors from the [place] facility where the Encounter took place. Current Smoking Status This section includes the most current smoking, or tobacco-related health factor, from the [place] facility where the Encounter took place. Date/Time Current Smoking Status Comment Shaheed jauregui Dec 19, 2023 09:00 AM VA-TOBACCO NEVER USED [facility] Tobacco Use History This section includes a history of the smoking, or tobacco-related health factors, that were collected on or before the date of the Encounter. The data comes from the [place] facility where the Encounter took place. Date/Time Smoking Status/Tobacco Use Comment F acility Nov 08, 2022 08:00 AM VA-TOBACCO NEVER USED [facility] Oct 19, 2021 10:00 AM VA-TOBACCO NEVER USED [facility] October 01, 2018 11:22 AM VA-TOBACCO NEVER USED [facility] Jul 31, 2017 12:37 PM LIFETIME NON-TOBACCO USER [facility] Aug 10, 2016 07:51 AM LIFETIME NON-TOBACCO USER [facility] Jul 21, 2015 07:47 AM LIFETIME NON-TOBACCO USER [facility] October 07, 2014 11:04 AM LIFETIME NON-TOBACCO USER [facility] October 04, 2013 09:48 AM LIFETIME NON-TOBACCO USER [facility] Advance Directives: All historical and current Section Date Range: From patient's date of to the date document was created. This section includes ALL of a patient's completed or amended [place] Advance and Rescinded Directives. The entries below indicate that a directive exists for the patient, but an actual copy is not included with this document. The data comes from all [facility]. Date Advance Directives Provider Source Mar 24, 2010 CLINICAL WARNING [facility] Dec 07, 2004 ADVANCE DIRECTIVE [facility] Radiology Reports: +/- 30 days of [...] the Encounter. The data comes from all [place] treatment facilities. Date/Time Radiology Report Provider Source Mar 26, 2024 07:33 AM US CAROTID (BILATE RAL) (P): RAULITO SMITH [id number] -1945 M Exm Date: MAR 26, 2024@07:33 Req Phys: ODELL HYMAN Pat Loc: [facility] PACT IVORY 4E (Req'g Loc) Img Loc: Ultrasound Imaging Service: [place] [address] (Case 211 COMPLETE) US CAROTID BILATERAL (US Detailed) CPT:98439 Reason for Study: see below Clinical History: H/o carotid stenosis seen at [facility] CT[facility] neck, please eval Responsible provider name and phone number to notify for critical findings if other than user placing the order and pager listed below: User placing orders pager: [phone] LAST CREATININE 0.7 (12/19/23) Report Status: Verified Date Reported: MAR 26, 2024 Date Verified: MAR 26, 2024 Java Developer With Security Clearance E-Sig:/ES/PETE SCHUSTER MD Report: Bilateral Carotid Artery Duplex Ultrasound History: Reason for Study: see below H/o carotid stenosis seen at [facility] CTA neck, please eval Responsible provider name and phone number to notify for critical findings if other than user placing the order and pager listed below: User placing orders pager: [phone] LAST CREATININE 0.7 (12/19/23) Comparison Study: None. [...] that as of March 04, 2022 the [facility] Non-invasive [facility] Lab has adopted the carotid artery stenosis Duplex criteria endorsed by Intersocietal Accreditation Commission(IAC). The changes in criteria may explain differences in the degree of stenosis when compared with prior exams. I, PETE SCHUSTER, have reviewed the images and report. Primary Interpreting Staff: PETE SCHUSTER MD, RADIOLOGIST (Java Developer With Security Clearance) Primary Interpreting Resident: MARY JANE BREEN, , HEADER UP /PETE JACINTO [facility] Encounter Notes: All associated encounter notes This section contains the clinical notes associated to the Encounter. Date/Time Encounter Note(s) Provider Source Apr 24, 2024 03:24 PM GERIATRIC MEDICINE NOTE: LOCAL TITLE: PERSONAL CARE SERVICES CASE MIX TOOL STANDARD TITLE: GERIATRIC MEDICINE NOTE DATE OF NOTE: APR 24, 2024@15:24:46 ENTRY DATE: APR 24, 2024@15:24:46 AUTHOR: NOEMY CUEVAS EXP COSIGNER: URGENCY: STATUS: COMPLETED PERSONAL CARE SERVICES CASE MIX TOOL Has ADDENDA BS Case Mix & Budget Tool (CASE MIX) Date Given: 04/24/2024 - completed with via phone # on file Clinician: Noemy Cuevas Location: [facility] [place]: Raulito Smith SSN: [id number] : [birth year]) Gender: Male Type of Evaluation: Annual Anticipated Start Date: 05/05/2024 Anticipated Length of Service: reauthorization request for home care service x180 days. Case mix assessment valid x1 year Case Mix Level: A ADL Category: Low Questions and Answers: Q1. DRESSING 0 Can dress without help of any kind Q2. GROOMING 0 Can comb your hair, wash your face, shave or brush your teeth without help of any kind - states he has the home care agency assist with certain grooming when they are at the home once a week. Q3. BATHING *4 Need and get help washing and drying your body - reports the home care agency assists with showering the . Q4. EATING 0 Can eat without help of any kind - reports the has the home care agency assist with meal prep when they are able. Q5. BED MOBILITY 0 Can move in bed without any help. Q6. TRANSFERRING *2 Need one other person to help you - reports that he has falls every day and when the home care agency is at the home they assist with him with transferring. Q7. WALKING 0 Walk without help of any kind - - states he wears a brace that he does not wear as often as he should. Q8. BEHAVIOR 0 Behavior requires no intervention. Q9. COMMUNICATION 0 Understood. Q10. TOILETING 0 Can use the toilet without help, including adjusting clothing. Q11. MDS HC 2.0/CPS Cognitive Skill for Daily Decision Making 0 Independent - decisions consistent/reasonable. Q12. MDS 2.0/CPS: Short Term Memory (recall of what was learned or known) 0 Short-term memory okay- seems/appears to recall after 5 minutes Q13. SPECIAL TREATMENTS 0 No TX Q14. CLINICAL MONITORING 0 Less than once a day Q15. SPECIAL NURSING No Q16. NEUROMUSCULAR DIAGNOSIS No COMMENTS [place] requesting to reauthorize the current plan of care for BLOCK CLEANER HM once a week through current home care agency. reports his current plan of care suffices for his current needs. see hours below. Discussed that ADLs need to be completed prior to HM. 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 Person, 3. Medical Record /es/ NOEMY CUEVAS, MSN, copy director Care Pail Tester Signed: 04/24/2024 15:30 04/24/2024 ADDENDUM STATUS: COMPLETED [place]/caregiver educated on Personal Care Services (PCS) available: Yes PCS needed/requested by /caregiver: Home Health Aide (BLOCK CLEANER) - yes requesting reauthorization of current plan of care. Homemaking (HM) - yes requesting reauthorization of current plan of care. In-Home Respite - no Adult Day Health Care (ADHC) - no Personal Care Services Case Mix Classification: A - has 2 ADL need for showering and transfers at this time. See Personal Care Services Case Mix Tool Note dated 04/24/24 Are first range hours adequate for this ?: Yes. Requesting reauthorization of current plan of care. 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 BLOCK CLEANER HM consult for reauthorization. /javad/ NADER HOROWITZ, copy director Care Pail Tester Signed: 04/24/2024 15:33 04/24/2024 ADDENDUM STATUS: COMPLETED In reference to the following consult: [facility] HOMEMAKER/HOME HEALTH AIDE Cons Order #[id number] Dated 04/24/24 Battery Assembler [employer] placed reauthorizaton consult and held for pcp review and signature to continue BLOCK CLEANER HM one time per week. /NADER Frankel, copy director Care Pail Tester Signed: 04/24/2024 15:39 NOEMY CUEVAS [facility]
[2024-05-22 08:53] VITALS: BP 175/80; PULSE 74; RESP 20; TEMP 36.7; O2SAT 95; BMI 22.7
--- NOTE | 2024-05-22 09:22 | ED.GENADULT ---
HPI - General Adult General Chief complaint: Skin/Abscess/Foreign Body Stated complaint: rash/swelling Time Seen by Provider: 05/22/24 09:20 History of Present Illness HPI narrative: Pt presents with rash on chin starting on the May 16. Has since gotten worse. Has tried cortisone and psoriasis cream and some other topical creams . Says these have helped none. Pt has itching with this, says the rash is more sore than painful. Rash started on chin , and has since spread to upper face and upper chest. Rash appears raw and red in some areas. Denies any problems with breathing. No new medications . No known allergies. No diet change. Has had a similar issue years ago, no known etiology then. UTD on shingles vaccine. 79-year-old man presenting to the emergency depart with concern of a rash present over lower face neck and chest. Notes a history of psoriasis but this is not consistent with that. Has tried some of these creams and xkew-lkt-duhrhue hydrocortisone cream. He describes a possible blister but on exam does not actually appear to be a blister more of a bump. He describes spending a lot of time outdoors. It is cold currently. Denies this might be related as this is not a new activity. Review of records shows him being seen here in April of 2022 and treated with prescription topical steroid and oral steroids. He says that worked. Otherwise no new medications Related Data Home Medications ?Medication ?Instructions ?Recorded ?Confirmed amlodipine 04/16/22 simvastatin 04/16/22 Previous Rx's ?Medication ?Instructions ?Recorded prednisone 20 mg tablet 20 mg PO DAILY 5 days #5 tabs 04/16/22 triamcinolone acetonide 0.5 % 1 applic topical DAILY PRN 5 days 04/16/22 topical cream #15 grams prednisone 20 mg tablet 20 mg PO BID #10 tabs 12/27/22 prednisone 20 mg tablet 40 mg (2 x 20 mg) PO DAILY 5 days 05/22/24 #10 tabs triamcinolone acetonide 0.1 % 1 applic topical BID #30 grams 05/22/24 topical cream Allergies Allergy/AdvReac Type Severity Reaction Status Date / Time No Known Drug Allergies Allergy Verified 12/27/22 12:41 Review of Systems Status of ROS: Reports: 6 or more systems reviewed and unremarkable except as noted in History and below PFSH PFSH Social History Smoking Status: Unknown if ever smoked Do you use any of these nicotine containing products: None How often do you have a drink containing alcohol: never How often do you have six or more drinks on one occasion: Never AUDIT-C Alcohol total score: 0 Non-prescribed substance use: denies use service: Yes Exam Narrative: Exam Narrative: Pleasant. NAD. Breathing easily. No stridor. No wheeze apparent. Oropharynx is unremarkable. There is generalized mild erythema about the mid face or so around the chin and neck. Broader areas of erythema in the neck creases with some most tightening. No blisters noted. Some areas of more roughness other areas are quite smooth. No induration to suggest cellulitis. Const: Vital Signs, click to edit/add: Vital Signs - 24 hr 05/22/24 08:53 Temperature 98.0 F Pulse Rate [Right Pulse Oximeter] 74 Respiratory Rate 20 Blood Pressure [Ri ght Upper Arm] 175/80 H Pulse Oximetry 95 Oxygen Delivery Me thod Room Air Documenting provider has reviewed patient's vital signs: yes Course Vital Signs Vital signs: Initial Vital Signs Temperature 98.0 F 05/22/24 08:53 Temperature Source Temporal Artery Scan 05/22/24 08:53 Pulse Rate 74 05/22/24 08:53 Pulse Rhythm Regular 05/22/24 08:53 Respiratory Rate 20 05/22/24 08:53 Blood Pressure 175/80 H 05/22/24 08:53 Blood Pressure Mean 111 H 05/22/24 08:53 Blood Pressure Position Sitting 05/22/24 08:53 Pulse Oximetry 95 05/22/24 08:53 Oxygen Delivery Method Room Air 05/22/24 08:53 Vital Signs Temperature 98.0 F 05/22/24 08:53 Pulse Rate 74 05/22/24 08:53 Respiratory Rate 20 05/22/24 08:53 Blood Pressure 175/80 H 05/22/24 08:53 Pulse Oximetry 95 05/22/24 08:53 Oxygen Delivery Method Room Air 05/22/24 08:53 Temperature 98.0 F 05/22/24 08:53 Pulse Rate 74 05/22/24 08:53 Respiratory Rate 20 05/22/24 08:53 Blood Pressure 175/80 H 05/22/24 08:53 Pulse Oximetry 95 05/22/24 08:53 Oxygen Delivery Method Room Air 05/22/24 08:53 Medical Decision Making MDM Narrative Medical decision making narrative: As prior physician I would suspect more of an eczematous type rash perhaps with the cold exposure. Does not appear to be infectious/cellulitic. Does not appear to be rheumatological. There is no other area of eruption as apparent on cursory exam and as reported by Mr. Smith. Some areas look like scleroderma but isolated. This appears to be in areas of exposure. Would also treat with steroid it least initially. See patient discharge plan for further discussion Prescribing a course of prednisone and triamcinolone cream as was done at your visit about 2 years ago. Would be re-evaluated if does not appear to be improved after 2 weeks. Sooner if markedly worsening. Discharge Plan Discharge Clinical Impression: Rash Patient Disposition: Home, Self-Care Condition: Stable Additional Instructions: Prescribing a course of prednisone and triamcinolone cream as was done at your visit about 2 years ago. Would be re-evaluated if does not appear to be improved after 2 weeks. Sooner if markedly worsening. Prescriptions: New prednisone 20 mg tablet 40 mg PO DAILY 5 Days Qty: 10 0RF triamcinolone acetonide 0.1 % cream 1 applic topical BID Qty: 30 0RF Rx Instructions: Apply to affected skin No Action prednisone 20 mg tablet 20 mg PO BID Qty: 10 0RF amlodipine simvastatin prednisone 20 mg tablet 20 mg PO DAILY 5 Days Qty: 5 0RF triamcinolone acetonide 0.5 % cream 1 applic topical DAILY PRN5 Days Qty: 15 0RF Follow Up/Referrals: Faizan An MD [Primary Care Provider] - Stand Alone Forms: [employer] Info Instructions
== END 2024-05-22 10:21 | disposition home or self-care (01) ==
PROVIDERS: Emergency Provider Family Medicine; PCP Family Medicine
DX: R21 Rash and other nonspecific skin eruption (principal)
CPT/HCPCS: 99283; 99284